=== PATIENT | female | born 1965 | race Hispanic/Latino ===

== ENCOUNTER → 2017-07-28 | Outpatient (CLI) | payer OTHER ==
[~2017-07-28] MED LIST: EXEN2VIA SQ; GLIM4TAB3 PO; LOSA100T29 PO; OMEP20CA10 PO; SITA1TAB6 PO
[2017-07-28 07:49] LABS: BASOPHILS % (AUTO) 0.6 % (0.0-5.0); LYMPHOCYTES % (AUTO) 28.2 % (21.0-51.0); MEAN CORPUSCULAR HEMOGLOBIN 28.2 pg (27.0-33.0); MEAN CORPUSCULAR HGB CONC 33.4 g/dL (32.0-36.0); MEAN CORPUSCULAR VOLUME 84.5 fL (79-99); MONOCYTES % (AUTO) 4.8 % (3.0-13.0); NEUTROPHILS % (AUTO) 64.4 % (40.0-77.0); NUCLEATED RED BLOOD CELLS 0.1 % (0.0-0.19); PLATELET COUNT (AUTO) 85 K/uL (130-400); RED BLOOD CELL COUNT(AUTO) 4.97 MIL/uL (4.00-5.50); RED CELL DISTRIBUTION WIDTH 14.3 % (11.0-15.5); WHITE BLOOD COUNT (AUTO) 6.3 K/uL (4.8-10.8)
[2017-07-28 08:01] LABS: HEMOGLOBIN A1C 8.5 % (4.0-6.0)
[2017-07-28 08:04] LABS: ALBUMIN 3.6 g/dL (3.5-5.0); BILIRUBIN,TOTAL 0.4 mg/dL (0.2-1.0); CREATININE 0.8 mg/dL (0.5-1.5); POTASSIUM 4.1 mmol/L (3.5-5.1); TOTAL PROTEIN, SERUM 7.4 g/dL (6.0-8.3)
== END | disposition home or self-care (01) ==
LOC: LAB 07:05
PROVIDERS: ATTEND Internal Medicine
DX: I10 Essential (primary) hypertension (principal); E11.9 Type 2 diabetes mellitus without complications; E78.4 Other hyperlipidemia
CPT/HCPCS: 36415; 80053; 80061; 82043; 83036; 85025

== ENCOUNTER → 2017-11-08 | Outpatient (CLI) | payer OTHER ==
[2017-11-08 09:49] LABS: BASOPHILS % (AUTO) 0.5 % (0.0-5.0); EOSINOPHILS % (AUTO) 1.7 % (0.0-8.0); HEMATOCRIT 43.1 % (36-48); LYMPHOCYTES % (AUTO) 21.6 % (21.0-51.0); MEAN CORPUSCULAR HEMOGLOBIN 28.8 pg (27.0-33.0); MEAN CORPUSCULAR HGB CONC 34.4 g/dL (32.0-36.0); MEAN CORPUSCULAR VOLUME 83.7 fL (79-99); NEUTROPHILS % (AUTO) 72.2 % (40.0-77.0); NUCLEATED RED BLOOD CELLS 0.1 % (0.0-0.19); PLATELET COUNT (AUTO) 106 K/uL (130-400); RED BLOOD CELL COUNT(AUTO) 5.15 MIL/uL (4.00-5.50); WHITE BLOOD COUNT (AUTO) 7.2 K/uL (4.8-10.8)
[2017-11-08 09:57] LABS: HEMOGLOBIN A1C 8.6 % (4.0-6.0)
[2017-11-08 10:06] LABS: ALBUMIN 3.8 g/dL (3.5-5.0); BILIRUBIN,TOTAL 0.4 mg/dL (0.2-1.0); CREATININE 0.9 mg/dL (0.5-1.5); POTASSIUM 4.3 mmol/L (3.5-5.1); TOTAL PROTEIN, SERUM 7.8 g/dL (6.0-8.3)
== END | disposition home or self-care (01) ==
LOC: LAB 09:17
PROVIDERS: ATTEND Internal Medicine
DX: E11.65 Type 2 diabetes mellitus with hyperglycemia (principal); I10 Essential (primary) hypertension; E78.4 Other hyperlipidemia; E55.9 Vitamin D deficiency, unspecified
CPT/HCPCS: 36415; 80053; 80061; 82306; 83036; 85025

== ENCOUNTER → 2018-03-19 | Outpatient (CLI) | payer OTHER ==
[~2018-03-19] MED LIST changes: +LOSA100T20 PO; -LOSA100T29 PO
[2018-03-19 14:16] LABS: THYROID STIMULATING HORMONE 2.59 uIU/mL (0.36-3.74)
== END | disposition home or self-care (01) ==
LOC: LAB 13:20
PROVIDERS: ATTEND Obstetrics & Gynecology
DX: R53.83 Other fatigue (principal); I10 Essential (primary) hypertension; E78.5 Hyperlipidemia, unspecified
CPT/HCPCS: 36415; 80061; 82670; 83001; 84402; 84403; 84439; 84443; 84481

== ENCOUNTER → 2018-04-30 | Outpatient (CLI) | payer OTHER | END | disposition home or self-care (01) | LOC: LAB 15:37 | PROVIDERS: ATTEND Obstetrics & Gynecology | DX: R53.83 Other fatigue (principal); Z72.89 Other problems related to lifestyle | CPT/HCPCS: 36415; 82670; 83001; 84402; 84403 ==

== ENCOUNTER → 2018-05-30 | Outpatient (CLI) | payer OTHER ==
[2018-05-30 11:24] LABS: BASOPHILS % (AUTO) 0.7 % (0.0-5.0); EOSINOPHILS % (AUTO) 1.5 % (0.0-8.0); HEMATOCRIT 44.7 % (36-48); LYMPHOCYTES % (AUTO) 19.7 % (21.0-51.0); MEAN CORPUSCULAR HEMOGLOBIN 27.7 pg (27.0-33.0); MEAN CORPUSCULAR HGB CONC 32.5 g/dL (32.0-36.0); MEAN CORPUSCULAR VOLUME 85.4 fL (79-99); MONOCYTES % (AUTO) 4.3 % (3.0-13.0); NEUTROPHILS % (AUTO) 73.8 % (40.0-77.0); NUCLEATED RED BLOOD CELLS 0.1 % (0.0-0.19); PLATELET COUNT (AUTO) 89 K/uL (130-400); RED BLOOD CELL COUNT(AUTO) 5.24 MIL/uL (4.00-5.50); RED CELL DISTRIBUTION WIDTH 13.6 % (11.0-15.5); WHITE BLOOD COUNT (AUTO) 7.9 K/uL (4.8-10.8)
[2018-05-30 11:24] LABS: CREATININE,URINE RANDOM 56 mg/dL (30-135)
[2018-05-30 11:26] LABS: APPEARANCE,URINE Clear (CLEAR); BILIRUBIN,URINE Negative (NEGATIVE); COLOR,URINE Yellow (YELLOW); GLUCOSE, URINE (UA) >=1000 mg/dL (NEGATIVE); KETONES,URINE Trace mg/dL (NEGATIVE); LEUKOCYTE ESTERASE ,URINE Trace (NEGATIVE); NITRATE,URINE Negative (NEGATIVE); OCCULT BLOOD,URINE Negative (NEGATIVE); PROTEIN,URINE Negative (NEGATIVE); UROBILINOGEN,URINE 0.2 mg/dL (0.2-1.0)
[2018-05-30 11:31] LABS: HEMOGLOBIN A1C 8.1 % (4.0-6.0)
[2018-05-30 11:33] LABS: BACTERIA,URINE Rare /HPF (None Seen); MUCUS,URINE Rare LPF (None Seen); RBC,URINE 0-1 /HPF (0-1); SQUAMOUS EPITHELIAL CELL,UR Rare /HPF (0-2); WBC,URINE 0-1 /HPF (0-1)
[2018-05-30 11:36] LABS: ALBUMIN 3.9 g/dL (3.5-5.0); BILIRUBIN,TOTAL 0.6 mg/dL (0.2-1.0); CREATININE 0.8 mg/dL (0.5-1.5); POTASSIUM 4.3 mmol/L (3.5-5.1); TOTAL PROTEIN, SERUM 7.9 g/dL (6.0-8.3)
== END | disposition home or self-care (01) ==
LOC: LAB 10:43
PROVIDERS: ATTEND Internal Medicine
DX: Z12.31 Encounter for screening mammogram for malignant neoplasm of breast (principal); E11.9 Type 2 diabetes mellitus without complications; I10 Essential (primary) hypertension; E78.5 Hyperlipidemia, unspecified
CPT/HCPCS: 36415; 77067; 80053; 80061; 81001; 82570; 83036; 85025

== ENCOUNTER → 2018-10-16 | Outpatient (CLI) | payer OTHER ==
[~2018-10-16] MED LIST changes: -LOSA100T20 PO; +LOSA100T58 PO
[2018-10-16 07:53] LABS: HEMOGLOBIN A1C 8.1 % (4.0-6.0)
[2018-10-16 08:10] LABS: THYROID STIMULATING HORMONE 3.11 uIU/mL (0.36-3.74)
== END | disposition home or self-care (01) ==
LOC: LAB 07:14
PROVIDERS: ATTEND Obstetrics & Gynecology
DX: R53.83 Other fatigue (principal)
CPT/HCPCS: 36415; 80061; 82670; 83001; 83036; 84402; 84403; 84439; 84443; 84481

== ENCOUNTER 2019-01-23 17:43 | Emergency (ER) | payer OTHER ==
[~2019-01-23 17:43] MED LIST changes: +OMEP-50 PO; -OMEP20CA10 PO
[2019-01-23] MEDS ORDERED: PHENAZOPYRIDINE HCL 200 MG TABLET ONE (18:14)
[2019-01-23] MEDS ORDERED: IBUPROFEN 600 MG TABLET ONE (18:14)
[2019-01-23 18:23] LABS: APPEARANCE,URINE Clear (CLEAR); BILIRUBIN,URINE Negative (NEGATIVE); COLOR,URINE Yellow (YELLOW); GLUCOSE, URINE (UA) >=1000 mg/dL (NEGATIVE); KETONES,URINE Negative (NEGATIVE); LEUKOCYTE ESTERASE ,URINE Small (NEGATIVE); NITRATE,URINE Negative (NEGATIVE); OCCULT BLOOD,URINE Large (NEGATIVE); PROTEIN,URINE Negative (NEGATIVE); UROBILINOGEN,URINE 0.2 mg/dL (0.2-1.0)
[2019-01-23 18:40] LABS: BACTERIA,URINE Few /HPF (None Seen)
[2019-01-23 18:41] LABS: SQUAMOUS EPITHELIAL CELL,UR 0-2 /HPF (0-2)
[2019-01-23] MEDS ORDERED: LIDOCAINE HCL-MPF 1% 2ML VIAL ONE (19:10)
[2019-01-23] MEDS ORDERED: CEFTRIAXONE SODIUM 1 GM ONE (19:10)
== END 2019-01-23 19:43 | disposition home or self-care (01) ==
LOC: EDH 17:43
DX: N39.0 Urinary tract infection, site not specified (principal); I10 Essential (primary) hypertension; K21.9 Gastro-esophageal reflux disease without esophagitis; E11.9 Type 2 diabetes mellitus without complications
CPT/HCPCS: 81001; 87077; 87088; 87186; 96372; 99284; J0696; J3490

== ENCOUNTER → 2019-02-19 | Outpatient (CLI) | payer OTHER ==
[2019-02-19 08:39] LABS: BASOPHILS % (AUTO) 0.6 % (0.0-5.0); EOSINOPHILS % (AUTO) 1.9 % (0.0-8.0); HEMATOCRIT 41.3 % (36-48); LYMPHOCYTES % (AUTO) 24.6 % (21.0-51.0); MEAN CORPUSCULAR HEMOGLOBIN 28.7 pg (27.0-33.0); MEAN CORPUSCULAR HGB CONC 34.1 g/dL (32.0-36.0); MEAN CORPUSCULAR VOLUME 84.2 fL (79-99); MONOCYTES % (AUTO) 4.8 % (3.0-13.0); NEUTROPHILS % (AUTO) 68.1 % (40.0-77.0); NUCLEATED RED BLOOD CELLS 0.1 % (0.0-0.19); PLATELET COUNT (AUTO) 90 K/uL (130-400); RED CELL DISTRIBUTION WIDTH 14.1 % (11.0-15.5); WHITE BLOOD COUNT (AUTO) 6.2 K/uL (4.8-10.8)
[2019-02-19 08:52] LABS: ALBUMIN 3.8 g/dL (3.5-5.0); BILIRUBIN,TOTAL 0.5 mg/dL (0.2-1.0); CREATININE 0.7 mg/dL (0.5-1.5); POTASSIUM 4.4 mmol/L (3.5-5.1); TOTAL PROTEIN, SERUM 7.7 g/dL (6.0-8.3)
[2019-02-19 08:59] LABS: HEMOGLOBIN A1C 9.4 % (4.0-6.0)
[2019-02-19 09:22] LABS: PLATELET MORPHOLOGY COMMENT DECREASED
== END | disposition home or self-care (01) ==
LOC: LAB 07:56
PROVIDERS: ATTEND Internal Medicine
DX: E11.9 Type 2 diabetes mellitus without complications (principal); I10 Essential (primary) hypertension; E78.49 Other hyperlipidemia
CPT/HCPCS: 36415; 80053; 82270; 82570; 83036; 85025

== ENCOUNTER → 2019-07-10 | Outpatient (CLI) | payer OTHER ==
[~2019-07-10] MED LIST changes: -GLIM4TAB3 PO; +GLIM4TAB36 PO; -OMEP-50 PO; +OMEP20CA12 PO
[2019-07-10 10:55] LABS: BASOPHILS % (AUTO) 0.5 % (0.0-5.0); EOSINOPHILS % (AUTO) 1.7 % (0.0-8.0); HEMATOCRIT 41.2 % (36-48); MEAN CORPUSCULAR VOLUME 84.9 fL (79-99); MONOCYTES % (AUTO) 4.2 % (3.0-13.0); NEUTROPHILS % (AUTO) 64.8 % (40.0-77.0); PLATELET COUNT (AUTO) 104 K/uL (130-400); RED BLOOD CELL COUNT(AUTO) 4.85 MIL/uL (4.00-5.50); RED CELL DISTRIBUTION WIDTH 12.9 % (11.0-15.5); WHITE BLOOD COUNT (AUTO) 6.6 K/uL (4.8-10.8)
[2019-07-10 11:01] LABS: HEMOGLOBIN A1C 9.5 % (4.0-6.0)
[2019-07-10 11:06] LABS: ALBUMIN 3.5 g/dL (3.5-5.0); BILIRUBIN,TOTAL 0.3 mg/dL (0.2-1.0); CREATININE 0.7 mg/dL (0.5-1.5); POTASSIUM 4.2 mmol/L (3.5-5.1); TOTAL PROTEIN, SERUM 7.5 g/dL (6.0-8.3)
== END | disposition home or self-care (01) ==
LOC: LAB 09:58
PROVIDERS: ATTEND Internal Medicine
DX: E78.49 Other hyperlipidemia (principal); E11.9 Type 2 diabetes mellitus without complications; I10 Essential (primary) hypertension
CPT/HCPCS: 36415; 80053; 82270; 82570; 83036; 85025

== ENCOUNTER → 2019-07-22 | Outpatient (CLI) | payer OTHER ==
[2019-07-23 08:12] LABS: HEPATITIS A ANTIBODY IGM Negative (Negative); HEPATITIS B CORE IGM Negative (Negative); HEPATITIS Bs ANTIGEN SCREEN P Negative (Negative)
== END | disposition home or self-care (01) ==
LOC: RAH 11:24
PROVIDERS: ATTEND Internal Medicine
DX: M54.5 Low back pain (principal); E11.9 Type 2 diabetes mellitus without complications; Z86.010 Personal history of colon polyps; I10 Essential (primary) hypertension; D64.9 Anemia, unspecified; K21.9 Gastro-esophageal reflux disease without esophagitis; Z79.899 Other long term (current) drug therapy
CPT/HCPCS: 36415; 72100; 72220; 80074; 82270

== ENCOUNTER → 2019-08-14 | Outpatient (CLI) | payer OTHER | END | disposition home or self-care (01) | LOC: RAH 14:25 | PROVIDERS: ATTEND Internal Medicine | DX: Z12.31 Encounter for screening mammogram for malignant neoplasm of breast (principal) | CPT/HCPCS: 77067 ==

== ENCOUNTER → 2019-10-14 | Outpatient (CLI) | payer OTHER ==
[2019-10-14 10:41] LABS: HEMOGLOBIN A1C 8.3 % (4.0-6.0)
[2019-10-14 10:48] LABS: BILIRUBIN,TOTAL 0.4 mg/dL (0.2-1.0); CREATININE 0.8 mg/dL (0.5-1.5); POTASSIUM 4.3 mmol/L (3.5-5.1); TOTAL PROTEIN, SERUM 7.9 g/dL (6.0-8.3)
== END | disposition home or self-care (01) ==
LOC: LAB 09:39
PROVIDERS: ATTEND Internal Medicine
DX: E11.65 Type 2 diabetes mellitus with hyperglycemia (principal); E78.41 Elevated Lipoprotein(a); I10 Essential (primary) hypertension
CPT/HCPCS: 36415; 80053; 83036

== ENCOUNTER 2019-12-09 08:40 | Inpatient (IN) | payer OTHER ==
[~2019-12-09] VITALS: Ht 162.6 cm; Wt 97.3 kg
[2019-12-09] MEDS ORDERED: ONDANSETRON HCL 4 MG/2 ML VIAL ONE (10:18)
[2019-12-09] MEDS ORDERED: POTASSIUM CHLORIDE 20 MEQ ERTAB PO ONE (10:18)
[2019-12-09] MEDS ORDERED: ACETAMINOPHEN 325 MG TAB ONE (10:19)
[2019-12-09] MEDS ORDERED: DEXAMETHASONE SOD PHOSPHATE 10MG/ML 1ML VIAL ONE (11:06)
[2019-12-09] MEDS: LACTATED RINGERS 1000ML 1,000 ML IV SCH (13:42)
[2019-12-09] MEDS ORDERED: LACTULOSE 20 GM/30 ML UDCUP PO PRN (13:45)
[2019-12-09] MEDS: METHYLPREDNISOLONE SOD SUCC 125MG/2ML VIAL IV SCH ×2 (13:45→20:22)
[2019-12-09] MEDS ORDERED: ONDANSETRON HCL 4 MG/2 ML VIAL IV PRN (13:45)
[2019-12-09] MEDS ORDERED: POTASSIUM CHLORIDE 20MEQ/100ML 100 ML IV PRN ×2 (13:45)
[2019-12-09] MEDS ORDERED: NITROGLYCERIN 0.4 MG SL TAB SL PRN (13:45)
[2019-12-09] MEDS ORDERED: DiphenhydrAMINE HCL 50 MG/ML VIAL IV PRN (13:45)
[2019-12-09] MEDS: DOXYCYCLINE 100MG+NS 250ML 250 ML IV SCH (13:45)
[2019-12-09] MEDS ORDERED: ACETAMINOPHEN 325 MG TAB PO PRN (13:45)
[2019-12-09] MEDS ORDERED: GLUCAGON 1MG KIT 1 MG ML IM PRN (13:45)
[2019-12-09] MEDS ORDERED: DEXTROSE 50%-WATER 50 ML DISP.SYRIN IV PRN (13:45)
[2019-12-09] MEDS ORDERED: MAG HYDROX/AL HYDROX/SIMETH ES 30 ML SUSP UDCUP PO PRN (13:45)
[2019-12-09] MEDS ORDERED: GUAIFENESIN-DM 200/20 MG 10 ML PO PRN (13:45)
[2019-12-09] MEDS ORDERED: POTASSIUM CHLORIDE 10% ELIXIR 20 MEQ/15 ML UDCUP PO PRN (13:45)
[2019-12-09] MEDS ORDERED: DIPHENHYDRAMINE HCL 25 MG CAPSULE PO PRN (13:45)
[2019-12-09] MEDS: BENZONATATE 100 MG CAPSULE PO SCH ×2 (14:00→20:23)
[2019-12-09] MEDS ORDERED: DOXYCYCLINE 100MG+NS 250ML 250 ML IV ONE (15:07)
[2019-12-09] MEDS ORDERED: BENZONATATE 100 MG CAPSULE PO ONE ×2 (15:09→15:31)
[2019-12-09] MEDS ORDERED: METHYLPREDNISOLONE SOD SUCC 40MG/ML 1ML ONE (15:09)
[2019-12-09] MEDS ORDERED: LACTATED RINGERS 1000ML 1,000 ML IV ONE (15:09)
--- NOTE | 2019-12-09 15:48 | NUR ---
DCP: HOME WITH FAMILY Sw unable to speak to pt in [facility] unit. SW spoke to Arian [phone]. Prior to admit, pt was independent, works at [employer] [place], no [place] or in home care services. PCP is dr Dobson and she uses mail order or [facility] for rx. [place] Addendum: 12/09/19 at 1550 by ELIZABETH GASCA Amended: Links added.
[2019-12-09 16:00] VITALS: BP 137/64; PULSE 97; RESP 19; TEMP 99
[2019-12-09] MEDS: INSULIN HUMULIN R 100 UNIT/ML 3ML SQ SCH ×2 (16:30→21:04)
[2019-12-09 19:21] VITALS: BP 126/52; PULSE 58; RESP 19; TEMP 98.9
[2019-12-09] MEDS: CEFTRIAXONE SODIUM 1 GM IV SCH (20:22)
[2019-12-09] MEDS: FAMOTIDINE/PF 20 MG/2 ML VIAL IV SCH (20:23)
[2019-12-09] MEDS ORDERED: FAMOTIDINE/PF 20 MG/2 ML VIAL IV SCH (21:00)
[2019-12-09] MEDS: INSULIN GLARGINE 100 UNITS/ML 10 ML VIAL SQ SCH (21:06)
[2019-12-09 23:07] VITALS: BP 142/72; PULSE 61; RESP 18; TEMP 99.1
[2019-12-10] MEDS: DOXYCYCLINE 100MG+NS 250ML 250 ML IV SCH ×2 (02:46→14:46)
[2019-12-10 03:48] VITALS: BP 135/71; PULSE 48; RESP 20; TEMP 98.3
--- NOTE | 2019-12-10 05:15 | NUR ---
PATIENT RESTING IN BED. DENIES PAIN. DOES C/O SOB AND NON PRODUCTIVE COUGH WITH EXERTION. DIMINISHED BREATH SOUNDS TO BASES. C/O NAUSEA. ANTIEMETICS ADMINISTERED X1. MONITORING BLOOD SUGARS CLOSELY. WILL CONTINUE TO MONITOR.
[2019-12-10] MEDS: METHYLPREDNISOLONE SOD SUCC 125MG/2ML VIAL IV SCH ×3 (06:14→20:31)
[2019-12-10] MEDS: INSULIN HUMULIN R 100 UNIT/ML 3ML SQ SCH ×3 (06:18→22:32)
[2019-12-10 08:52] VITALS: BP 141/74; PULSE 65; RESP 18; TEMP 98.5
--- NOTE | 2019-12-10 09:00 | NUR ---
NOTE AAOX3. DENIES PAIN BUT REPORTS DISCOMFORT FROM NOT SLEEPING ALL NIGHT. STATES SHE WAS VERY NERVOUS ABOUT TESTING POSITIVE FOR COVID AND WONDERED WHERE SHE DID WRONG HOW SHE GOT INFECTED. DOES NOT APPEAR TO BE SOB WITH O2@2LNC BUT SHE GETS SOB WITH MINIMAL EXERTION. BBS VERY DIMINISHED THROUGHOUT. WHEN ASKED TO TAKE DEEP BREATH TO AUSCULTATE SHE IMMEDIATELY STARTS COUGHING BUT NO PHLEGM BEING PRODUCED. SHE IS ON STEROIDS AND ANTIVIRAL HAS BEEN ORDERED BUT IS NOT AVAILABLE YET. SPOKE TO HER FOR A WHILE AND INSTRUCTED HER TO TRY TO BE OUT OF BED OFTEN TO PREVENT HER BREATHING TO GET WORST. HAS BEEN AFEBRILE FOR US. INITIALLY HER SYMPTOMS WERE DIARRHEA AND NAUSEA WHICH WAS STILL PRESENT LAST NIGHT.
[2019-12-10] MEDS: ENOXAPARIN SODIUM 40 MG/0.4 ML SYRINGE SQ SCH (09:11)
[2019-12-10] MEDS: CEFTRIAXONE SODIUM 1 GM IV SCH ×2 (09:11→20:29)
[2019-12-10] MEDS: BENZONATATE 100 MG CAPSULE PO SCH ×3 (09:11→20:29)
[2019-12-10] MEDS: FAMOTIDINE/PF 20 MG/2 ML VIAL IV SCH ×2 (09:11→20:28)
[2019-12-10] MEDS: LACTATED RINGERS 1000ML 1,000 ML IV SCH (09:42)
[2019-12-10 12:35] VITALS: BP 138/69; PULSE 56; RESP 18; TEMP 98.8
[2019-12-10 15:28] VITALS: BP 127/75; PULSE 63; RESP 18; TEMP 98.3
--- NOTE | 2019-12-10 16:30 | NUR ---
NOTE CONTINUES TO BE STABLE. NO WORSENING SOB NOTED. STILL ON O2 AT 2LNC AND WITH NO COUGH NOTED UNLESS SHE EXERTS HERSELF. SEEMS MORE CALM FAR NERVOUSNESS AND EMOTIONS. SHE SAID SHE COULD NOT SLEEP BECAUSE SHE WAS HAVING A HARD TIME ACCEPTING SHE GOT THIS SICK AND KEEPS TRYING TO FIGURE OUT WHERE SHE GOT THIS AT. I CALLED LAB AND SPOKE TO CHRISTIAN REGARDING THE AVAILABILITY OF THE CONVALESCENT PLASMA BUT THERE IS NONE AVAILABLE YET. LAB IS AWARE AND THEY WILL CALL US SOON THEY RECEIVE SOME FOR THIS PATIENT.
[2019-12-10 19:15] VITALS: BP 135/63; PULSE 56; RESP 18; TEMP 98.4
[2019-12-10] MEDS ORDERED: INSULIN GLARGINE 100 UNITS/ML 10 ML VIAL SQ SCH (21:00)
--- NOTE | 2019-12-10 21:00 | NUR ---
PT IS AMBULATING WITH 02 EXTENSION TUBING. MINIMAL SOB WITH EXERTION. INCONTINENT SO USING BRIEFS. PT HAS COUGH. TESSALON PEARLS GIVEN. STATES CONCERNS OVER BEING POSITIVE. PT GIVEN EMOTIONAL SUPPORT. TO MINIMIZE COVID FEARS. PENDING PLASMA.
[2019-12-10] MEDS: INSULIN GLARGINE 100 UNITS/ML 10 ML VIAL SQ SCH (22:32)
[2019-12-10 23:13] VITALS: BP 120/66; PULSE 54; RESP 18; TEMP 97.9
[2019-12-11] MEDS: DOXYCYCLINE 100MG+NS 250ML 250 ML IV SCH ×2 (01:26→13:09)
[2019-12-11] MEDS: LACTATED RINGERS 1000ML 1,000 ML IV SCH (01:26)
--- NOTE | 2019-12-11 01:40 | NUR ---
PT C/O CHILLS. TEMP CHECKED 98.1. DOXYCYCLINE RUNNING AT THIS TIME.
--- NOTE | 2019-12-11 04:00 | NUR ---
SINUS BRADYCARDIA, PT BASELINE IS 50 WHEN SLEEPING CAN GO DOWN TO 30'S HR. ASYMPTOMATIC.
[2019-12-11] MEDS: METHYLPREDNISOLONE SOD SUCC 125MG/2ML VIAL IV SCH (05:02)
[2019-12-11 05:16] VITALS: BP 130/62; PULSE 49; RESP 18; TEMP 96.9
[2019-12-11] MEDS: INSULIN HUMULIN R 100 UNIT/ML 3ML SQ SCH ×4 (05:31→21:01)
[2019-12-11] MEDS ORDERED: REMDESIVIR (INVESTIGATIONAL) 200 MG in SODIUM CHLORIDE 0.9% 250 ML IV SCH (07:30)
[2019-12-11 08:33] VITALS: BP 138/62; PULSE 54; RESP 18; TEMP 98.2
[2019-12-11] MEDS: FAMOTIDINE/PF 20 MG/2 ML VIAL IV SCH (09:05)
[2019-12-11] MEDS: CEFTRIAXONE SODIUM 1 GM IV SCH ×2 (09:05→20:56)
[2019-12-11] MEDS: ENOXAPARIN SODIUM 40 MG/0.4 ML SYRINGE SQ SCH (09:06)
[2019-12-11] MEDS: BENZONATATE 100 MG CAPSULE PO SCH ×3 (09:06→20:56)
[2019-12-11 12:26] VITALS: BP 138/73; PULSE 57; RESP 18; TEMP 98.5
[2019-12-11 16:40] VITALS: BP 138/78; PULSE 53; RESP 18; TEMP 99.1
[2019-12-11 20:00] VITALS: BP 136/47; PULSE 49; RESP 20; TEMP 98.5
[2019-12-11] MEDS: INSULIN GLARGINE 100 UNITS/ML 10 ML VIAL SQ SCH (21:01)
[2019-12-11] MEDS: ACETAMINOPHEN 325 MG TAB PO PRN (23:10)
[2019-12-12] VITALS (7 sets, daily range): BP systolic 99–146; BP diastolic 46–88; PULSE 47–75; RESP 18–20; TEMP 98.2–100.3
[2019-12-12] MEDS: DOXYCYCLINE 100MG+NS 250ML 250 ML IV SCH ×2 (02:23→12:43)
[2019-12-12] MEDS: INSULIN HUMULIN R 100 UNIT/ML 3ML SQ SCH ×4 (05:45→20:58)
[2019-12-12] MEDS: PANTOPRAZOLE SODIUM 40 MG TABLET.DR PO SCH (06:33)
--- NOTE | 2019-12-12 08:00 | NUR ---
ENCOUNTERED PATIENT LAYING ON BED ON 2L OF OXYGEN PER NC. SHE VERBALIZED THAT SHE FEELS A BIT BETTER TODAY. PT STILL COUGHS DESPITE BEING ON BENZONATATE TID. THIS CAUSES INTERMITTENT CHEST PAIN. FULL ASSESSMENT DONE. ENHANCED PRECAUTIONS MAINTAINED. CALL LIGHT WITHIN REACH.
[2019-12-12] MEDS: SIMVASTATIN 10 MG TABLET PO SCH (08:32)
[2019-12-12] MEDS: ASPIRIN 81 MG EC TAB PO SCH (08:33)
[2019-12-12] MEDS: POTASSIUM CHLORIDE 20 MEQ ERTAB PO PRN ×3 (08:33→14:25)
[2019-12-12] MEDS: DEXAMETHASONE 4 MG TAB PO SCH (08:33)
[2019-12-12] MEDS: ENOXAPARIN SODIUM 40 MG/0.4 ML SYRINGE SQ SCH (08:34)
[2019-12-12] MEDS: CEFTRIAXONE SODIUM 1 GM IV SCH (08:37)
[2019-12-12] MEDS: BENZONATATE 100 MG CAPSULE PO SCH ×3 (08:37→20:53)
[2019-12-12] MEDS: **HM** FARXIGA 10MG PO SCH (08:51)
--- NOTE | 2019-12-12 12:00 | NUR ---
INFORMED [facility] THAT PT'S LATEST TEMP IS 100.3F. PER DR. CALI, WILL HOLD OFF ON CONVALESCENT PLASMA ADMINISTRATION FOR NOW.
[2019-12-12] MEDS: ACETAMINOPHEN 325 MG TAB PO PRN (12:16)
[2019-12-12] MEDS: ZOSYN 3.375GM+NS 50ML 50 ML IV SCH (20:53)
[2019-12-12] MEDS: INSULIN GLARGINE 100 UNITS/ML 10 ML VIAL SQ SCH (20:59)
[2019-12-13] VITALS (7 sets, daily range): BP systolic 125–168; BP diastolic 56–83; PULSE 45–69; RESP 18–20; TEMP 97.6–99.3
[2019-12-13] MEDS: DOXYCYCLINE 100MG+NS 250ML 250 ML IV SCH ×2 (01:45→14:45)
[2019-12-13] MEDS: ZOSYN 3.375GM+NS 50ML 50 ML IV SCH ×3 (04:01→20:24)
[2019-12-13] MEDS: INSULIN HUMULIN R 100 UNIT/ML 3ML SQ SCH ×4 (05:52→20:27)
[2019-12-13] MEDS: **HM** FARXIGA 10MG PO SCH (07:40)
[2019-12-13] MEDS: PANTOPRAZOLE SODIUM 40 MG TABLET.DR PO SCH (07:52)
[2019-12-13] MEDS: DEXAMETHASONE 4 MG TAB PO SCH (07:52)
[2019-12-13] MEDS: ASPIRIN 81 MG EC TAB PO SCH (07:52)
[2019-12-13] MEDS: SIMVASTATIN 10 MG TABLET PO SCH (07:52)
[2019-12-13] MEDS: BENZONATATE 100 MG CAPSULE PO SCH ×3 (07:52→20:24)
[2019-12-13] MEDS: ENOXAPARIN SODIUM 40 MG/0.4 ML SYRINGE SQ SCH (07:53)
--- NOTE | 2019-12-13 16:00 | NUR ---
DR. CALI IS ROUNDING. INFORMED MD OF LAB RESULTS. PATIENT REMAINS ON ROOM AIR HOWEVER DDIMER AND CRP INCREASED TODAY. MD ORDERED TO ADMINISTER CONVALESCENT PLASMA.
--- NOTE | 2019-12-13 18:00 | NUR ---
PATIENT SIGNED CONSENT FOR CONVALESCENT PLASMA. BLOOD TRANSFUSION AND [facility] CONSENTS SIGNED AND FILED IN CHART.
[2019-12-13] MEDS: INSULIN GLARGINE 100 UNITS/ML 10 ML VIAL SQ SCH (20:25)
[2019-12-14] VITALS (7 sets, daily range): BP systolic 107–171; BP diastolic 62–74; PULSE 39–57; RESP 18–20; TEMP 97.8–98.9
[2019-12-14] MEDS: DOXYCYCLINE 100MG+NS 250ML 250 ML IV SCH ×2 (00:29→13:18)
--- NOTE | 2019-12-14 00:45 | NUR ---
SINUS MIHAI BRIM AND CROWN PRESSER REPORTED PATIENT TO BE SINUS MIHAI 32. WHEN ENTERING PATIENTS ROOM, PATIENT RESTING IN BED WITH OU CLOSED. EASILY AROUSED. VOICES ALL NEEDS. RESP EVEN AND UNLABORED. NO SOB NOTED. ON ROOM AIR. VITALS STABLE. AFEBRILE. TOLERATING IV ABT WELL. NO ADVERSE REACTIONS NOTED. NO SIGNS OF DISTRESS NOTED. CALL LIGHT WITHIN REACH. WILL CONTINUE TO BE OBSERVED. Addendum: 12/14/19 at 0704 by KRISTIN CARLOS RN RN Amended: Links added.
[2019-12-14] MEDS: ZOSYN 3.375GM+NS 50ML 50 ML IV SCH ×3 (04:00→20:26)
[2019-12-14] MEDS: PANTOPRAZOLE SODIUM 40 MG TABLET.DR PO SCH (06:05)
[2019-12-14] MEDS: INSULIN HUMULIN R 100 UNIT/ML 3ML SQ SCH ×4 (06:23→20:26)
[2019-12-14] MEDS: POTASSIUM CHLORIDE 20 MEQ ERTAB PO PRN ×3 (06:27→09:54)
[2019-12-14] MEDS: **HM** FARXIGA 10MG PO SCH (06:37)
[2019-12-14] MEDS: DEXAMETHASONE 4 MG TAB PO SCH (07:51)
[2019-12-14] MEDS: SIMVASTATIN 10 MG TABLET PO SCH (07:51)
[2019-12-14] MEDS: BENZONATATE 100 MG CAPSULE PO SCH ×3 (07:51→20:27)
[2019-12-14] MEDS: ASPIRIN 81 MG EC TAB PO SCH (07:51)
[2019-12-14] MEDS: ENOXAPARIN SODIUM 40 MG/0.4 ML SYRINGE SQ SCH (07:52)
--- NOTE | 2019-12-14 13:40 | NUR ---
JHONNY JUAREZ IS MAKING HER ROUNDS. UPDATED ON PATIENT'S STATUS.
--- NOTE | 2019-12-14 14:50 | NUR ---
INITIATED CONVALESCENT PLASMA TRANSFUSION ORDERED.
--- NOTE | 2019-12-14 17:00 | NUR ---
COMPLETED TRANSFUSION OF CONVALESCENT PLASMA WITHOUT COMPLICATIONS OR TRANSFUSION REACTION.
[2019-12-14] MEDS: INSULIN GLARGINE 100 UNITS/ML 10 ML VIAL SQ SCH (20:27)
[2019-12-15] MEDS: DOXYCYCLINE 100MG+NS 250ML 250 ML IV SCH (00:01)
[2019-12-15 03:06] VITALS: BP 118/76; PULSE 50; RESP 18; TEMP 97.7
[2019-12-15] MEDS: ZOSYN 3.375GM+NS 50ML 50 ML IV SCH ×2 (04:24→11:13)
[2019-12-15] MEDS: PANTOPRAZOLE SODIUM 40 MG TABLET.DR PO SCH (06:57)
[2019-12-15] MEDS: **HM** FARXIGA 10MG PO SCH (06:57)
[2019-12-15] MEDS: INSULIN HUMULIN R 100 UNIT/ML 3ML SQ SCH ×2 (06:58→12:12)
[2019-12-15] MEDS: DEXAMETHASONE 4 MG TAB PO SCH (07:45)
[2019-12-15] MEDS: BENZONATATE 100 MG CAPSULE PO SCH (07:45)
[2019-12-15] MEDS: ASPIRIN 81 MG EC TAB PO SCH (07:45)
[2019-12-15] MEDS: POTASSIUM CHLORIDE 20 MEQ ERTAB PO PRN ×2 (07:46→10:37)
[2019-12-15] MEDS: ENOXAPARIN SODIUM 40 MG/0.4 ML SYRINGE SQ SCH (07:46)
[2019-12-15] MEDS: SIMVASTATIN 10 MG TABLET PO SCH (07:48)
[2019-12-15 08:00] VITALS: BP 146/81; PULSE 44; RESP 18; TEMP 98.2
[2019-12-15 12:00] VITALS: BP 140/84; PULSE 58; RESP 18; TEMP 98.7
--- NOTE | 2019-12-15 15:13 | NUR ---
DISCHARGE INSTRUCTIONS/INFORMATION GIVEN TO PATIENT. TEACH BACK METHOD UTILIZED TO EDUCATE PATIENT ON NEW MED PRESCRIBED, HAND WASHING, ACTIVITY, S/S TO MONITOR, WHEN TO CALL MD, AND F/U APPOINTMENTS. INSTRUCTED PATIENT TO CONTINUE TO SELF ISOLATE FOR ANOTHER 14 DAYS AND TO FOLLOW CDC GUIDELINES ON PREVENTING SPREAD OF COVID-19. PATIENT VERBALIZED UNDERSTANDING. PIV REMOVED. TIP WAS INTACT. TELE PACK REMOVED AND RETURNED. ALL BELONGINGS WERE PACKED.
== END 2019-12-15 15:30 | disposition home or self-care (01) | DRG 177 ==
LOC: EDH 08:40 → EDHIP 13:42 → 2AH 16:42
PROVIDERS: ADMIT Family Medicine; ATTEND Family Medicine
PROC: 30233K1 Transfusion of Nonautologous Frozen Plasma into Peripheral Vein, Percutaneous Approach (ICD-10-PCS; principal; 2019-12-15)
DX: U07.1 COVID-19 (principal); J12.89 Other viral pneumonia; J96.01 Acute respiratory failure with hypoxia; A41.9 Sepsis, unspecified organism; E11.9 Type 2 diabetes mellitus without complications; I10 Essential (primary) hypertension; D69.6 Thrombocytopenia, unspecified; E66.9 Obesity, unspecified; Y95 Nosocomial condition; K21.9 Gastro-esophageal reflux disease without esophagitis; Z68.36 Body mass index [BMI] 36.0-36.9, adult; Z90.49 Acquired absence of other specified parts of digestive tract; Z83.3 Family history of diabetes mellitus; Z82.49 Family history of ischemic heart disease and other diseases of the circulatory system

== ENCOUNTER → 2019-12-25 | Outpatient (CLI) | payer OTHER ==
[~2019-12-25] MED LIST changes: +ASPI-1443 PO; +DAPA10TA PO; +DEXA6TAB7 PO; +DULA1.5P SQ; -EXEN2VIA SQ; -GLIM4TAB36 PO; +INSU300I SQ; +METF-446 PO; +OMEP-420 PO; -OMEP20CA12 PO; +SIMV10TA97 PO; -SITA1TAB6 PO
== END | disposition home or self-care (01) ==
LOC: RAH 11:05
PROVIDERS: ATTEND Internal Medicine
DX: U07.1 COVID-19 (principal)
CPT/HCPCS: 71046

== ENCOUNTER → 2020-01-10 | Outpatient (CLI) | payer OTHER ==
[2020-01-10 09:18] LABS: BASOPHILS % (AUTO) 0.4 % (0.0-5.0); EOSINOPHILS % (AUTO) 0.4 % (0.0-8.0); HEMATOCRIT 44.3 % (36-48); LYMPHOCYTES % (AUTO) 31.5 % (21.0-51.0); MEAN CORPUSCULAR HEMOGLOBIN 28.2 pg (27.0-33.0); MEAN CORPUSCULAR HGB CONC 33.2 g/dL (32.0-36.0); MONOCYTES % (AUTO) 4.5 % (3.0-13.0); PLATELET COUNT (AUTO) 106 K/uL (130-400); RED BLOOD CELL COUNT(AUTO) 5.21 MIL/uL (4.00-5.50); RED CELL DISTRIBUTION WIDTH 14.2 % (11.0-15.5); WHITE BLOOD COUNT (AUTO) 11.1 K/uL (4.8-10.8)
[2020-01-10 09:35] LABS: ALBUMIN 3.7 g/dL (3.5-5.0); BILIRUBIN,TOTAL 0.7 mg/dL (0.2-1.0); CREATININE 0.8 mg/dL (0.5-1.5); POTASSIUM 4.1 mmol/L (3.5-5.1); TOTAL PROTEIN, SERUM 7.2 g/dL (6.0-8.3)
[2020-01-10 09:50] LABS: HEMOGLOBIN A1C 9.6 % (4.0-6.0)
== END | disposition home or self-care (01) ==
LOC: RAH 08:41
PROVIDERS: ATTEND Internal Medicine
DX: B97.29 Other coronavirus as the cause of diseases classified elsewhere (principal); E78.49 Other hyperlipidemia; E11.65 Type 2 diabetes mellitus with hyperglycemia
CPT/HCPCS: 36415; 71250; 80053; 80061; 83036; 85025

== ENCOUNTER → 2020-05-05 | Outpatient (CLI) | payer OTHER | END | disposition home or self-care (01) | LOC: RAH 12:49 | PROVIDERS: ATTEND Internal Medicine | DX: R91.8 Other nonspecific abnormal finding of lung field (principal); B97.29 Other coronavirus as the cause of diseases classified elsewhere | CPT/HCPCS: 71250 ==

== ENCOUNTER → 2020-05-18 | Outpatient (CLI) | payer OTHER | END | disposition home or self-care (01) | LOC: RAH 07:34 | PROVIDERS: ATTEND Internal Medicine | DX: M51.36 Other intervertebral disc degeneration, lumbar region (principal); M47.816 Spondylosis without myelopathy or radiculopathy, lumbar region; M54.5 Low back pain | CPT/HCPCS: 72148 ==

== ENCOUNTER → 2020-05-25 | Outpatient (CLI) | payer OTHER ==
[2020-05-25 10:34] LABS: BASOPHILS % (AUTO) 0.4 % (0.0-5.0); EOSINOPHILS % (AUTO) 1.6 % (0.0-8.0); LYMPHOCYTES % (AUTO) 24.4 % (21.0-51.0); MEAN CORPUSCULAR HEMOGLOBIN 27.3 pg (27.0-33.0); MEAN CORPUSCULAR HGB CONC 32.3 g/dL (32.0-36.0); MEAN CORPUSCULAR VOLUME 84.5 fL (79-99); MONOCYTES % (AUTO) 4.5 % (3.0-13.0); NEUTROPHILS % (AUTO) 68.6 % (40.0-77.0); PLATELET COUNT (AUTO) 105 K/uL (130-400); RED BLOOD CELL COUNT(AUTO) 5.21 MIL/uL (4.00-5.50); RED CELL DISTRIBUTION WIDTH 12.8 % (11.0-15.5); WHITE BLOOD COUNT (AUTO) 7.3 K/uL (4.8-10.8)
[2020-05-25 10:54] LABS: ALBUMIN 3.8 g/dL (3.5-5.0); BILIRUBIN,TOTAL 0.4 mg/dL (0.2-1.0); CREATININE 0.7 mg/dL (0.5-1.5); POTASSIUM 4.5 mmol/L (3.5-5.1); TOTAL PROTEIN, SERUM 7.4 g/dL (6.0-8.3)
[2020-05-25 11:01] LABS: HEMOGLOBIN A1C 7.9 % (4.0-6.0)
== END | disposition home or self-care (01) ==
LOC: LAB 09:13
PROVIDERS: ATTEND Internal Medicine
DX: E11.65 Type 2 diabetes mellitus with hyperglycemia (principal); E78.49 Other hyperlipidemia; I10 Essential (primary) hypertension
CPT/HCPCS: 36415; 80053; 83036; 85025

== ENCOUNTER → 2020-11-18 | Outpatient (CLI) | payer OTHER ==
[2020-11-18 08:26] LABS: BASOPHILS % (AUTO) 0.6 % (0.0-5.0); EOSINOPHILS % (AUTO) 1.8 % (0.0-8.0); HEMATOCRIT 43.6 % (36-48); LYMPHOCYTES % (AUTO) 23.1 % (21.0-51.0); MEAN CORPUSCULAR HEMOGLOBIN 27.1 pg (27.0-33.0); MEAN CORPUSCULAR HGB CONC 31.9 g/dL (32.0-36.0); MONOCYTES % (AUTO) 4.2 % (3.0-13.0); NEUTROPHILS % (AUTO) 69.7 % (40.0-77.0); PLATELET COUNT (AUTO) 116 K/uL (130-400); RED BLOOD CELL COUNT(AUTO) 5.13 MIL/uL (4.00-5.50); RED CELL DISTRIBUTION WIDTH 13.2 % (11.0-15.5); WHITE BLOOD COUNT (AUTO) 7.8 K/uL (4.8-10.8)
[2020-11-18 08:36] LABS: HEMOGLOBIN A1C 9.3 % (4.0-6.0)
[2020-11-18 08:38] LABS: ALBUMIN 3.8 g/dL (3.5-5.0); BILIRUBIN,TOTAL 0.4 mg/dL (0.2-1.0); CREATININE 0.8 mg/dL (0.5-1.5); POTASSIUM 4.6 mmol/L (3.5-5.1); TOTAL PROTEIN, SERUM 7.5 g/dL (6.0-8.3)
== END | disposition home or self-care (01) ==
LOC: LAB 07:48
PROVIDERS: ATTEND Internal Medicine
DX: Z12.31 Encounter for screening mammogram for malignant neoplasm of breast (principal); E78.49 Other hyperlipidemia; I10 Essential (primary) hypertension; E11.65 Type 2 diabetes mellitus with hyperglycemia
CPT/HCPCS: 36415; 77067; 80053; 83036; 85025

== ENCOUNTER → 2020-12-16 | Outpatient (CLI) | payer OTHER ==
[2020-12-16 10:41] LABS: CHOLESTEROL 148 mg/dL (<200); HDL CHOLESTEROL 46 mg/dL (35-85); LDL DIRECT 81 mg/dL (0-99); TRIGLYCERIDES 159 mg/dL (30-200)
== END | disposition home or self-care (01) ==
LOC: LAB 09:43
PROVIDERS: ATTEND Internal Medicine
DX: E11.65 Type 2 diabetes mellitus with hyperglycemia (principal)
CPT/HCPCS: 36415; 80061; 82043

== ENCOUNTER 2021-07-03 07:23 | Emergency (ER) | payer OTHER ==
[~2021-07-03] VITALS: Ht 162.6 cm; Wt 97.5 kg
[2021-07-03] MEDS ORDERED: PREDNISOLONE 15 MG/5 ML SOLN ONE (07:39)
[2021-07-03] MEDS ORDERED: GUAIFENESIN 600 MG TABLET.ER PO ONE (07:58)
[2021-07-03] MEDS ORDERED: GUAIFENESIN SUGAR-FREE 100 MG/5 ML UDCUP ONE (07:59)
[2021-07-03] MEDS ORDERED: DEXAMETHASONE SOD PHOSPHATE 4 MG/ML 1ML VIAL IM SCH (08:00)
[2021-07-03] MEDS ORDERED: PREDNISOLONE 15 MG/5 ML SOLN PO SCH (08:00)
[2021-07-03] MEDS ORDERED: BENZ-39 PO (08:01)
[2021-07-03] MEDS ORDERED: DEXA6TAB PO (08:01)
[2021-07-03 08:04] VITALS: BP 140/72
== END 2021-07-03 08:14 | disposition home or self-care (01) ==
LOC: EDH 07:23
DX: J01.90 Acute sinusitis, unspecified (principal); B34.9 Viral infection, unspecified; I10 Essential (primary) hypertension; E11.9 Type 2 diabetes mellitus without complications; E78.00 Pure hypercholesterolemia, unspecified; Z90.49 Acquired absence of other specified parts of digestive tract; Z98.890 Other specified postprocedural states; Z79.899 Other long term (current) drug therapy
CPT/HCPCS: 96372

== ENCOUNTER 2021-07-20 06:04 | Day surgery (SDC) | payer OTHER ==
[~2021-07-20] VITALS: Ht 162.6 cm; Wt 95.3 kg
[2021-07-20] VITALS (9 sets, daily range): BP systolic 95–132; BP diastolic 14–67
[~2021-07-20 06:04] MED LIST changes: -DEXA6TAB7 PO; +VITAMIN D3 PO
[2021-07-20] MEDS ORDERED: 0.9%NACL 1000ML 1,000 ML IV ONE (06:49)
[2021-07-20] MEDS ORDERED: PROPOFOL 10 MG/ML 20ML VIAL IV ONE (07:25)
== END 2021-07-20 08:30 | disposition home or self-care (01) ==
LOC: DAH 06:04 → ENDO 06:04
PROVIDERS: ATTEND Internal Medicine Gastroenterology
DX: Z12.11 Encounter for screening for malignant neoplasm of colon (principal); Z20.822 Contact with and (suspected) exposure to COVID-19; D12.3 Benign neoplasm of transverse colon; K57.30 Diverticulosis of large intestine without perforation or abscess without bleeding; I10 Essential (primary) hypertension; E11.9 Type 2 diabetes mellitus without complications; K21.9 Gastro-esophageal reflux disease without esophagitis; Z72.89 Other problems related to lifestyle; Z86.11 Personal history of tuberculosis; Z79.899 Other long term (current) drug therapy; Z98.890 Other specified postprocedural states; Z86.010 Personal history of colon polyps; Z79.4 Long term (current) use of insulin
CPT/HCPCS: 45380; 82948; 87635; A4215 ×2; A4221; A4222; A4223; A4606; A4620; A4663; C9803; J2704; J7030; 45378

== ENCOUNTER → 2021-12-13 | Outpatient (CLI) | payer OTHER ==
[~2021-12-13] MED LIST changes: -INSU300I SQ
[2021-12-13 11:11] LABS: BASOPHILS % (AUTO) 0.5 % (0.0-5.0); EOSINOPHILS % (AUTO) 1.1 % (0.0-8.0); HEMATOCRIT 45.8 % (36-48); LYMPHOCYTES % (AUTO) 22.4 % (21.0-51.0); MEAN CORPUSCULAR HEMOGLOBIN 27.6 pg (27.0-33.0); MEAN CORPUSCULAR VOLUME 83.6 fL (79-99); MONOCYTES % (AUTO) 3.9 % (3.0-13.0); NEUTROPHILS % (AUTO) 71.7 % (40.0-77.0); PLATELET COUNT (AUTO) 106 K/uL (130-400); RED BLOOD CELL COUNT(AUTO) 5.48 MIL/uL (4.00-5.50); RED CELL DISTRIBUTION WIDTH 13.1 % (11.0-15.5); WHITE BLOOD COUNT (AUTO) 7.9 K/uL (4.8-10.8)
[2021-12-13 11:25] LABS: ALBUMIN 4.2 g/dL (3.5-5.0); BILIRUBIN,TOTAL 0.4 mg/dL (0.2-1.0); CREATININE 0.7 mg/dL (0.5-1.5); POTASSIUM 4.4 mmol/L (3.5-5.1); TOTAL PROTEIN, SERUM 7.9 g/dL (6.0-8.3)
== END | disposition home or self-care (01) ==
LOC: LAB 09:20
PROVIDERS: ATTEND Internal Medicine
DX: Z00.00 Encounter for general adult medical examination without abnormal findings (principal); E78.49 Other hyperlipidemia; I10 Essential (primary) hypertension
CPT/HCPCS: 36415; 80053; 80061; 82043; 85025

== ENCOUNTER → 2022-06-28 | Outpatient (CLI) | payer OTHER ==
[~2022-06-28] MED LIST changes: +GADOTERATE MEGLUMINE 10 MMOL/20 ML VIAL IV ONE
== END | disposition home or self-care (01) ==
LOC: RAH 10:16
PROVIDERS: ATTEND Otolaryngology
DX: H90.3 Sensorineural hearing loss, bilateral (principal)
CPT/HCPCS: 70553; A9575

== ENCOUNTER → 2023-02-07 | Outpatient (CLI) | payer OTHER ==
[~2023-02-07] MED LIST changes: -GADOTERATE MEGLUMINE 10 MMOL/20 ML VIAL IV ONE; -LOSA100T58 PO; +LOSA100T59 PO
== END | disposition home or self-care (01) ==
LOC: RAH 11:21
PROVIDERS: ATTEND Internal Medicine
DX: Z12.31 Encounter for screening mammogram for malignant neoplasm of breast (principal)
CPT/HCPCS: 77067

== ENCOUNTER 2023-02-11 07:46 | Emergency (ER) | payer OTHER ==
[~2023-02-11] VITALS: Ht 162.6 cm; Wt 90.7 kg
[2023-02-11 08:45] LABS: APPEARANCE,URINE CLOUDY (CLEAR); BILIRUBIN,URINE NEGATIVE (NEGATIVE); COLOR,URINE LIGHT-YELLOW (YELLOW); GLUCOSE, URINE (UA) NEGATIVE (NEGATIVE); KETONES,URINE 20 mg/dL (NEGATIVE); LEUKOCYTE ESTERASE ,URINE 75 Leu/uL (NEGATIVE); NITRATE,URINE NEGATIVE (NEGATIVE); OCCULT BLOOD,URINE NEGATIVE (NEGATIVE); PROTEIN,URINE 20 mg/dL (NEGATIVE)
[2023-02-11 08:45] LABS: BASOPHILS # (AUTO) 0.03 K/uL (0.00-0.20); BASOPHILS % (AUTO) 0.3 % (0.0-5.0); EOSINOPHILS # (AUTO) 0.01 K/uL (0.00-0.70); EOSINOPHILS % (AUTO) 0.1 % (0.0-8.0); HEMATOCRIT 38.8 % (36-48); IMMATURE GRANULOCYTE ABSOLUTE 0.06 K/uL (0-1); LYMPHOCYTES % (AUTO) 8.7 % (21.0-51.0); MEAN CORPUSCULAR HGB CONC 33.8 g/dL (32.0-36.0); MEAN CORPUSCULAR VOLUME 82.9 fL (79-99); MONOCYTES # (AUTO) 0.8 K/uL (0.1-1.0); MONOCYTES % (AUTO) 7.4 % (3.0-13.0); NEUTROPHILS # (AUTO) 9.5 K/uL (1.8-7.7); PLATELET COUNT (AUTO) 108 K/uL (130-400); RED BLOOD CELL COUNT(AUTO) 4.68 MIL/uL (4.00-5.50); RED CELL DISTRIBUTION WIDTH 12.9 % (11.0-15.5); WHITE BLOOD COUNT (AUTO) 11.4 K/uL (4.8-10.8)
[2023-02-11 09:00] VITALS: TEMP 102.2
[2023-02-11] MEDS ORDERED: CEFTRIAXONE 2GM VIAL IVPB ONE (09:00)
[2023-02-11] MEDS ORDERED: METOCLOPRAMIDE 10 MG/2 ML VIAL IVP ONE (09:00)
[2023-02-11] MEDS ORDERED: ACETAMINOPHEN 500 MG TABLET PO ONE (09:00)
[2023-02-11] MEDS ORDERED: FAMOTIDINE 20MG VIAL IV ONE (09:00)
[2023-02-11] MEDS ORDERED: KETOROLAC 30MG VIAL (30MG/ML) IVP ONE (09:00)
[2023-02-11] MEDS ORDERED: 0.9%NACL 1000ML 1,000 ML IV ONE ×2 (09:00)
[2023-02-11 09:16] LABS: BILIRUBIN,TOTAL 1.3 mg/dL (0.2-1.0); CREATININE 0.7 mg/dL (0.5-1.5); POTASSIUM 3.6 mmol/L (3.5-5.1); TOTAL PROTEIN, SERUM 7.5 g/dL (6.0-8.3)
[2023-02-11 09:17] LABS: ALBUMIN 3.2 g/dL (3.5-5.0)
[2023-02-11 09:24] LABS: ADD UA MICROSCOPIC YES
[2023-02-11 09:41] LABS: BACTERIA,URINE FEW /HPF (None Seen); MUCUS,URINE RARE LPF (None Seen); SQUAMOUS EPITHELIAL CELL,UR MOD /HPF (0-2)
[2023-02-11 10:01] VITALS: BP 113/63; PULSE 72; RESP 18; O2SAT 96
[2023-02-11] MEDS ORDERED: CEPH500B PO (10:59)
== END 2023-02-11 11:00 | disposition home or self-care (01) ==
LOC: EDH 07:46
DX: N39.0 Urinary tract infection, site not specified (principal); E11.65 Type 2 diabetes mellitus with hyperglycemia; I10 Essential (primary) hypertension; E78.00 Pure hypercholesterolemia, unspecified; Z90.49 Acquired absence of other specified parts of digestive tract; Z79.82 Long term (current) use of aspirin; Z79.84 Long term (current) use of oral hypoglycemic drugs; Z79.899 Other long term (current) drug therapy
CPT/HCPCS: 99284; 96365; 96375; 80053; 83690; 85025; 87040 ×2; 87077; 87088; 87186; 83605; 81001; 36415; J3490; J0696; J1885; J2765

== ENCOUNTER → 2023-02-27 | Outpatient (CLI) | payer OTHER ==
[~2023-02-27] MED LIST changes: +CEPH500B PO
[2023-02-27 12:00] LABS: BASOPHILS # (AUTO) 0.03 K/uL (0.00-0.20); BASOPHILS % (AUTO) 0.4 % (0.0-5.0); EOSINOPHILS # (AUTO) 0.09 K/uL (0.00-0.70); EOSINOPHILS % (AUTO) 1.3 % (0.0-8.0); HEMATOCRIT 43.5 % (36-48); IMMATURE GRANULOCYTE ABSOLUTE 0.03 K/uL (0-1); LYMPHOCYTES # (AUTO) 1.5 K/uL (1.0-4.8); LYMPHOCYTES % (AUTO) 21.7 % (21.0-51.0); MEAN CORPUSCULAR HEMOGLOBIN 28.4 pg (27.0-33.0); MEAN CORPUSCULAR HGB CONC 33.1 g/dL (32.0-36.0); MEAN CORPUSCULAR VOLUME 85.8 fL (79-99); MONOCYTES # (AUTO) 0.3 K/uL (0.1-1.0); MONOCYTES % (AUTO) 3.8 % (3.0-13.0); NEUTROPHILS # (AUTO) 5.1 K/uL (1.8-7.7); NEUTROPHILS % (AUTO) 72.4 % (40.0-77.0); PLATELET COUNT (AUTO) 124 K/uL (130-400); RED BLOOD CELL COUNT(AUTO) 5.07 MIL/uL (4.00-5.50); WHITE BLOOD COUNT (AUTO) 7.1 K/uL (4.8-10.8)
[2023-02-27 12:10] LABS: HEMOGLOBIN A1C 8.4 % (4.0-6.0)
[2023-02-27 12:17] LABS: ALBUMIN 4.1 g/dL (3.5-5.0); BILIRUBIN,TOTAL 0.5 mg/dL (0.2-1.0); CREATININE 0.6 mg/dL (0.5-1.5); POTASSIUM 4.3 mmol/L (3.5-5.1); TOTAL PROTEIN, SERUM 7.7 g/dL (6.0-8.3)
== END | disposition home or self-care (01) ==
LOC: LAB 10:31
PROVIDERS: ATTEND Internal Medicine
DX: Z00.00 Encounter for general adult medical examination without abnormal findings (principal); E78.49 Other hyperlipidemia; I10 Essential (primary) hypertension
CPT/HCPCS: 36415; 80053; 80061; 82570; 83036; 85025

== ENCOUNTER → 2023-04-13 | Outpatient (CLI) | payer OTHER | END | disposition home or self-care (01) | LOC: RAH 07:54 | PROVIDERS: ATTEND Internal Medicine | DX: M19.012 Primary osteoarthritis, left shoulder (principal); M54.2 Cervicalgia; M25.512 Pain in left shoulder; M47.812 Spondylosis without myelopathy or radiculopathy, cervical region | CPT/HCPCS: 72040; 73030 ==

== ENCOUNTER 2023-05-01 12:01 | Emergency (ER) | payer OTHER ==
[~2023-05-01] VITALS: Ht 162.6 cm; Wt 89.4 kg
[2023-05-01 12:19] LABS: BASOPHILS # (AUTO) 0.02 K/uL (0.00-0.20); BASOPHILS % (AUTO) 0.2 % (0.0-5.0); EOSINOPHILS # (AUTO) 0.08 K/uL (0.00-0.70); IMMATURE GRANULOCYTE ABSOLUTE 0.04 K/uL (0-1); LYMPHOCYTES # (AUTO) 1.7 K/uL (1.0-4.8); LYMPHOCYTES % (AUTO) 20.8 % (21.0-51.0); MEAN CORPUSCULAR HEMOGLOBIN 28.6 pg (27.0-33.0); MEAN CORPUSCULAR VOLUME 84.1 fL (79-99); MONOCYTES # (AUTO) 0.3 K/uL (0.1-1.0); MONOCYTES % (AUTO) 3.8 % (3.0-13.0); NEUTROPHILS # (AUTO) 6.1 K/uL (1.8-7.7); NEUTROPHILS % (AUTO) 73.7 % (40.0-77.0); PLATELET COUNT (AUTO) 103 K/uL (130-400); RED BLOOD CELL COUNT(AUTO) 5.11 MIL/uL (4.00-5.50); RED CELL DISTRIBUTION WIDTH 13.2 % (11.0-15.5); WHITE BLOOD COUNT (AUTO) 8.2 K/uL (4.8-10.8)
[2023-05-01 12:23] LABS: CREATININE 0.7 mg/dL (0.5-1.5); POTASSIUM 3.9 mmol/L (3.5-5.1)
[2023-05-01 12:27] LABS: ALBUMIN 4.1 g/dL (3.5-5.0); BILIRUBIN,TOTAL 0.5 mg/dL (0.2-1.0); TOTAL PROTEIN, SERUM 7.8 g/dL (6.0-8.3)
[2023-05-01] MEDS ORDERED: IOHEXOL 350 MG/ML 100ML INFUS..BTL IV ONE (16:52)
[2023-05-01 17:03] LABS: ADD UA MICROSCOPIC YES; APPEARANCE,URINE CLEAR (CLEAR); BILIRUBIN,URINE NEGATIVE (NEGATIVE); COLOR,URINE LIGHT-YELLOW (YELLOW); GLUCOSE, URINE (UA) >=1000 mg/dL (NEGATIVE); KETONES,URINE 5 mg/dL (NEGATIVE); LEUKOCYTE ESTERASE ,URINE 25 Leu/uL (NEGATIVE); NITRATE,URINE NEGATIVE (NEGATIVE); OCCULT BLOOD,URINE NEGATIVE (NEGATIVE); PH,URINE 5.5 (5.0-8.0); PROTEIN,URINE NEGATIVE (NEGATIVE); UROBILINOGEN,URINE 0.2 mg/dL (0.2-1.0)
[2023-05-01 17:05] LABS: BACTERIA,URINE MOD /HPF (None Seen); MUCUS,URINE RARE LPF (None Seen); SQUAMOUS EPITHELIAL CELL,UR FEW /HPF (0-2)
[2023-05-01 18:21] VITALS: BP 143/72; PULSE 63; RESP 18; O2SAT 99
== END 2023-05-01 18:34 | disposition home or self-care (01) ==
LOC: EDH 12:01
DX: R42 Dizziness and giddiness (principal); R68.84 Jaw pain; M25.512 Pain in left shoulder; I10 Essential (primary) hypertension; E11.9 Type 2 diabetes mellitus without complications; Z79.82 Long term (current) use of aspirin; Z79.84 Long term (current) use of oral hypoglycemic drugs; Z79.899 Other long term (current) drug therapy; Z98.890 Other specified postprocedural states
CPT/HCPCS: 99285; 70496; 84484; 80053; 85025; 82948; 81001; 36415; 70498; 93005; 70450; Q9967

== ENCOUNTER → 2023-05-19 | Outpatient (CLI) | payer OTHER | END | disposition home or self-care (01) | LOC: RAH 08:10 | PROVIDERS: ATTEND Nurse Practitioner | DX: M19.012 Primary osteoarthritis, left shoulder (principal); M75.02 Adhesive capsulitis of left shoulder | CPT/HCPCS: 73221 ==

== ENCOUNTER → 2023-07-31 | Outpatient (CLI) | payer OTHER ==
[2023-07-31 10:20] LABS: BASOPHILS # (AUTO) 0.04 K/uL (0.00-0.20); BASOPHILS % (AUTO) 0.5 % (0.0-5.0); EOSINOPHILS # (AUTO) 0.14 K/uL (0.00-0.70); EOSINOPHILS % (AUTO) 1.6 % (0.0-8.0); HEMATOCRIT 43.9 % (36-48); IMMATURE GRANULOCYTE ABSOLUTE 0.05 K/uL (0-1); LYMPHOCYTES # (AUTO) 1.7 K/uL (1.0-4.8); LYMPHOCYTES % (AUTO) 19.9 % (21.0-51.0); MEAN CORPUSCULAR HGB CONC 33.7 g/dL (32.0-36.0); MEAN CORPUSCULAR VOLUME 86.1 fL (79-99); MONOCYTES # (AUTO) 0.4 K/uL (0.1-1.0); MONOCYTES % (AUTO) 4.1 % (3.0-13.0); NEUTROPHILS # (AUTO) 6.4 K/uL (1.8-7.7); NEUTROPHILS % (AUTO) 73.3 % (40.0-77.0); PLATELET COUNT (AUTO) 120 K/uL (130-400); RED CELL DISTRIBUTION WIDTH 13.3 % (11.0-15.5); WHITE BLOOD COUNT (AUTO) 8.7 K/uL (4.8-10.8)
[2023-07-31 10:34] LABS: ALBUMIN 3.9 g/dL (3.5-5.0); BILIRUBIN,TOTAL 0.8 mg/dL (0.2-1.0); CREATININE 0.8 mg/dL (0.5-1.5); POTASSIUM 4.3 mmol/L (3.5-5.1); TOTAL PROTEIN, SERUM 7.6 g/dL (6.0-8.3)
[2023-07-31 10:38] LABS: HEMOGLOBIN A1C 7.8 % (4.0-6.0)
== END | disposition home or self-care (01) ==
LOC: LAB 09:26
PROVIDERS: ATTEND Clinical Nurse Specialist Family Health
DX: I10 Essential (primary) hypertension (principal); E78.49 Other hyperlipidemia; D69.8 Other specified hemorrhagic conditions; E11.9 Type 2 diabetes mellitus without complications
CPT/HCPCS: 36415; 80053; 80061; 82043; 82570; 83036; 85025

== ENCOUNTER → 2024-03-29 | Outpatient (CLI) | payer OTHER | END | disposition home or self-care (01) | LOC: RAH 14:05 | PROVIDERS: ATTEND Internal Medicine | DX: Z12.31 Encounter for screening mammogram for malignant neoplasm of breast (principal); R92.333 Mammographic heterogeneous density, bilateral breasts; R92.30 Dense breasts, unspecified | CPT/HCPCS: 77067 ==

== ENCOUNTER → 2024-04-03 | Outpatient (CLI) | payer OTHER ==
[2024-04-03 09:59] LABS: HEMOGLOBIN A1C 8.1 % (4.0-6.0)
== END | disposition home or self-care (01) ==
LOC: LAB 09:20
PROVIDERS: ATTEND Clinical Nurse Specialist Family Health
DX: E11.65 Type 2 diabetes mellitus with hyperglycemia (principal); E11.42 Type 2 diabetes mellitus with diabetic polyneuropathy
CPT/HCPCS: 83036

== ENCOUNTER 2024-07-12 20:26 | Emergency (ER) | payer OTHER ==
[~2024-07-12] VITALS: Ht 162.6 cm; Wt 88.5 kg
--- NOTE | 2024-07-12 20:30 | NUR ---
COVID AND FLU SWABS COLLECTED AND SENT
[2024-07-12 20:55] LABS: BASOPHILS # (AUTO) 0.02 K/uL (0.00-0.20); BASOPHILS % (AUTO) 0.4 % (0.0-5.0); EOSINOPHILS # (AUTO) 0.01 K/uL (0.00-0.70); EOSINOPHILS % (AUTO) 0.2 % (0.0-8.0); HEMATOCRIT 42.8 % (36-48); IMMATURE GRANULOCYTE ABSOLUTE 0.03 K/uL (0-1); LYMPHOCYTES # (AUTO) 0.5 K/uL (1.0-4.8); MEAN CORPUSCULAR HEMOGLOBIN 28.4 pg (27.0-33.0); MEAN CORPUSCULAR HGB CONC 32.9 g/dL (32.0-36.0); MEAN CORPUSCULAR VOLUME 86.3 fL (79-99); MONOCYTES # (AUTO) 0.4 K/uL (0.1-1.0); MONOCYTES % (AUTO) 7.6 % (3.0-13.0); NEUTROPHILS # (AUTO) 4.3 K/uL (1.8-7.7); NEUTROPHILS % (AUTO) 81.2 % (40.0-77.0); PLATELET COUNT (AUTO) 80 K/uL (130-400); RED BLOOD CELL COUNT(AUTO) 4.96 MIL/uL (4.00-5.50); RED CELL DISTRIBUTION WIDTH 13.2 % (11.0-15.5); WHITE BLOOD COUNT (AUTO) 5.3 K/uL (4.8-10.8)
[2024-07-12 21:03] LABS: CREATININE 0.8 mg/dL (0.5-1.0); POTASSIUM 3.7 mmol/L (3.5-5.1)
[2024-07-12] MEDS: dexaMETHasone SOD PHOSPHATE 4 MG/ML 1ML VIAL IVP ONE (21:10)
[2024-07-12] MEDS: acetaMINOPHEN/coDEINE 120/12MG 5ML PO STA (21:11)
[2024-07-12 21:14] LABS: APPEARANCE,URINE CLEAR (CLEAR); BILIRUBIN,URINE NEGATIVE (NEGATIVE); COLOR,URINE LIGHT-YELLOW (YELLOW); GLUCOSE, URINE (UA) >=1000 mg/dL (NEGATIVE); KETONES,URINE NEGATIVE (NEGATIVE); LEUKOCYTE ESTERASE ,URINE NEGATIVE Leu/uL (NEGATIVE); NITRATE,URINE NEGATIVE (NEGATIVE); PH,URINE 5.5 (5.0-8.0); PROTEIN,URINE NEGATIVE (NEGATIVE); UROBILINOGEN,URINE 0.2 mg/dL (0.2-1.0)
[2024-07-12 21:15] LABS: ADD UA MICROSCOPIC YES
[2024-07-12 21:16] LABS: INFLUENZA TYPE B Negative For Type B (NEGATIVE)
[2024-07-12 21:19] LABS: SARS-CoV-2, RNA, NAAT NEGATIVE SARS CoV-2 (NEGATIVE)
[2024-07-12 21:21] LABS: MUCUS,URINE RARE LPF (None Seen); SQUAMOUS EPITHELIAL CELL,UR RARE /HPF (0-2); WBC,URINE 0-1 /HPF (0-1)
[2024-07-12 21:21] LABS: INFLUENZA TYPE A Positive For Type A (NEGATIVE)
[2024-07-12] MEDS: 0.9%NACL 1000ML 1,000 ML IV ONE (21:37)
[2024-07-12] MEDS: OSELTAMIVIR PHOSPHATE 75 MG CAP PO ONE (21:55)
[2024-07-12 22:00] VITALS: RESP 18
[2024-07-12] MEDS: IpraTROPium/alBUTERol SULFATE 3 ML SOLUTION IH ONE (22:00)
[2024-07-12] MEDS ORDERED: AZIT500T4 PO (22:01)
[2024-07-12] MEDS ORDERED: GUAI100L37 PO (22:01)
[2024-07-12] MEDS ORDERED: OSEL75 PO (22:01)
[2024-07-12] MEDS ORDERED: LORA10TA7 PO (22:01)
[2024-07-12] MEDS ORDERED: FLUT16H NS (22:01)
--- NOTE | 2024-07-12 22:01 | ERN ---
General Chief Complaint: Sepsis Stated Complaint: FEVER,COUGH,CONGESTION,MULTIPLE CONGESTION Time Seen by MD: 20:29 Source: patient History of Present Illness Initial Comments Patient is a 58-year-old female coming in to be evaluated for fever cough and congestion. Per patient these symptoms have been ongoing for two days. She also states that she does have a history of bronchitis usually after URIs. Per patient she has been having nasal congestion cough runny nose and sore throat. Allergies: Coded Allergies: No Known Allergies (Unverified Allergy, Unknown, 09/02/15) Home Meds Active Scripts Cephalexin Monohydrate (Keflex) 500 Mg Cap, 500 MG PO QID for 7 Days, #28 CAP 0 Refills Prov:YOLIE HENDRICKS Sr., MD 02/11/23 Reported Medications [Vitamin D3 ] No Conflict Check, 1000 MG PO DAILY 07/19/21 Aspirin (Aspirin EC) 81 Mg Tablet.dr, 81 MG PO DAILY, TAB 12/09/19 Omeprazole (Omeprazole) 20 Mg Tab.rap.dr, 20 MG PO ACBKFST 12/09/19 Dapagliflozin Propanediol (Farxiga) 10 Mg Tablet, 10 MG PO DAILY 12/09/19 Metformin HCl (Metformin HCl) 1,000 Mg Tablet, 1000 MG PO BIDMEALS 12/09/19 Simvastatin (Simvastatin) 10 Mg Tablet, 10 MG PO DAILY 12/09/19 Dulaglutide (Trulicity) 1.5 Mg/0.5 Ml Pen.injctr, 1.5 MG SQ QMONDAY 12/09/19 Losartan Potassium (Losartan Potassium) 100 Mg Tablet, 100 MG PO DAILY, TAB 09/02/15 Past Medical History Past Medical History: Diabetes-Type II, Hypertension Medical History Other: 2019 Past Surgical History: Cholecystectomy, Unknown Surgical History Other: D AND C Social History Social History: Negative, Lives with family ROS Dictation CONSTITUTIONAL: No chills, fever, no weakness, no diaphoresis, no malaise. HEAD/FACE: No signs of trauma. EENT: No eye pain, no blurred vision, no tearing, no double vision, no ear pain, no ear discharge, no nose pain, no nasal congestion, no throat pain, no throat swelling, no mouth pain. RESPIRATORY: cough, no orthopnea, no SOB, no stridor, no wheezing. CARDIOVASCULAR: No chest pain, no edema, no palpitations, no syncope. GASTROINTESTINAL/ABDOMINAL: No abdominal pain, no constipation, no diarrhea, no nausea, no vomiting. GENITOURINARY: No abnormal discharge, no dysuria, no frequent urination, no hematuria. No complaints of pain in the genitals. MUSCULOSKELETAL: No back pain, no gout, no joint pain, no joint swelling, no muscle pain, no muscle stiffness, no neck pain. INTEGUMENTARY: No change in color, no change in hair/nails, no dryness, no lesion, no lumps, no rash. NEUROLOGICAL/PSYCH: No anxiety, not depressed, no emotional problem, no headache, no numbness, no pre-existing deficit, no history of seizures, no tremors, no weakness. HEMATOLOGIC/LYMPHATIC: Not anemic, no history of blood clots, no apparent bleeding, no bruising, glands not swollen. All Systems Negative, Except as Noted. Physical Exam Physical Exam Dictation VITAL SIGNS: Reviewed. GENERAL APPEARANCE: Alert, oriented x3, no acute distress, obese. HEAD AND FACE: Non-traumatic. EYES: PERRL, pink conjunctivas, eyelid no trauma, anterior chamber clear. EARS: Pinnas intact and no signs of trauma or erythema. Ear canals clear and no discharge. TMs no erythema. NOSE: No discharge, no bleeding. OROPHARYNX: Mouth normal, teeth no caries, tongue pink. Pharynx clear, no erythema. Tonsils no exudates, no abscesses noted. Mucous membrane moist. NECK: Supple, non-tender, no thyromegaly, no masses, no JVD, no bruits. BREAST: Deferred. CHEST: No tenderness, no crepitus, no paradoxical movement, no retractions. LUNGS: Clear, well-ventilated, symmetric, no rales, no wheezing, no rhonchi, no stridor, good breath sounds bilaterally. HEART: Regular rate, regular rhythm, no murmur, no gallops. VASCULAR: No peripheral edema. ABDOMEN: Soft, positive bowel sounds, nondistended, no guarding, nontender, no rebound, no masses no hepatomegaly, no splenomegaly, no Juarez's sign, no hernias. RECTAL: Deferred. GENITAL: Deferred. NEUROLOGICAL: Normal speech, gross motor function intact, gross sensory function intact. MUSCULOSKELETAL: Neck nontender, full range of motion, back nontender, full range of motion. EXTREMITIES: Nontender, full range of motion. SKIN: Color pink, dry, no turgor, no rash, no lacerations, no abrasions, no contusions. LYMPHATICS: Deferred. Results Laboratory and Microbiology Lab and Micro Result Laboratory Tests Test 07/12/24 20:33 07/12/24 20:44 07/12/24 20:54 07/12/24 21:01 Influenza Type A Antigen Positive For Type A Influenza Type B Antigen Negative For Type B SARS-CoV-2, RNA, NAAT NEGATIVE SARS CoV-2 White Blood Count 5.3 K/uL (4.8-10.8) Red Blood Count 4.96 MIL/uL (4.00-5.50) Hemoglobin 14.1 g/dL (12.0-16.0) Hematocrit 42.8 % (36-48) Mean Corpuscular Volume 86.3 fL (79-99) Mean Corpuscular Hemoglobin 28.4 pg (27.0-33.0) Mean Corpuscular Hemoglobin Concent 32.9 g/dL (32.0-36.0) Red Cell Distribution Width 13.2 % (11.0-15.5) Platelet Count 80 K/uL (130-400) L Mean Platelet Volume 13.2 fL (7.5-10.5) H Immature Granulocyte % (Auto) 0.6 % (0-1) Neutrophils (%) (Auto) 81.2 % (40.0-77.0) H Lymphocytes (%) (Auto) 10.0 % (21.0-51.0) L Monocytes (%) (Auto) 7.6 % (3.0-13.0) Eosinophils (%) (Auto) 0.2 % (0.0-8.0) Basophils (%) (Auto) 0.4 % (0.0-5.0) Neutrophils # (Auto) 4.3 K/uL (1.8-7.7) Lymphocytes # (Auto) 0.5 K/uL (1.0-4.8) L Monocytes # (Auto) 0.4 K/uL (0.1-1.0) Eosinophils # (Auto) 0.01 K/uL (0.00-0.70) Basophils # (Auto) 0.02 K/uL (0.00-0.20) Absolute Immature Granulocyte (auto 0.03 K/uL (0-1) Nucleated Red Blood Cells 0.0 % (0.0-0.19) White Cell Morphology Comment See comments Sodium Level 138 mmol/L (136-145) Potassium Level 3.7 mmol/L (3.5-5.1) Chloride Level 100 mmol/L (101-111) L Carbon Dioxide Level 31 mmol/L (21-32) Blood Urea Nitrogen 10 mg/dL (7-18) Creatinine 0.8 mg/dL (0.5-1.0) Glomerular Filtration Rate Calc 85 mL/min (>90) Random Glucose 207 mg/dL (70-105) H Lactic Acid Level 1.5 mmol/L (0.8-2.5) Total Calcium 8.9 mg/dL (8.5-10.1) Total Creatine Kinase 56 U/L (21-232) # Troponin I High Sensitivity 45 ng/L (4-50) Urine Color LIGHT-YELLOW (YELLOW) Urine Appearance CLEAR (CLEAR) Urine pH 5.5 (5.0-8.0) Urine Specific [place] 1.036 (1.001-1.031) Urine Protein NEGATIVE mg/dL (NEGATIVE) Urine Glucose (UA) >=1000 mg/dL (NEGATIVE) H Urine Ketones NEGATIVE mg/dL (NEGATIVE) Urine Occult Blood +- (TRACE) (NEGATIVE) H Urine Nitrate NEGATIVE (NEGATIVE) Urine Bilirubin NEGATIVE mg/dL (NEGATIVE) Urine Urobilinogen 0.2 mg/dL (0.2-1.0) Urine Leukocyte Esterase NEGATIVE Hieu/uL Urine RBC 11-25 /HPF (0-1) H Urine WBC 0-1 /HPF (0-1) Urine Squamous Epithelial Cells RARE /HPF (0-2) Urine Bacteria None /HPF (None Seen) Group A Streptococcus Rapid negative (NEGATIVE) Labs Reviewed?: Yes EKG/XRAY/US/CT/MRI EKG Comment Chest x-ray- NAD MDM MDM: Differential diagnosis: URI, bronchitis, COVID, flu Patient is a 58-year-old female coming in to be evaluated for URI symptoms. Per patient these symptoms began two days ago progressively got worse. Today laboratory workup disclose an influenza A. Patient was treated with IV fluids Tamiflu as well as antitussive. Patient will be discharged in stable condition with a diagnosis of influenza A. ED Course Orders Procedure Category Date Status Time Cbc With Differential LAB 07/12/24 Complete 20:31 Blood Cult DION 07/12/24 In Process 20:31 Urinalysis Profile LAB 07/12/24 Complete 20:31 Culture Urine DION 07/12/24 In Process 20:31 Creatine Kinase, Total LAB 07/12/24 Complete 20:31 Troponin I High LAB 07/12/24 Complete Sensitivity 20:31 Lactic Acid LAB 07/12/24 Complete 20:31 Basic Metabolic Panel LAB 07/12/24 Complete 20:31 Covid Rna Naat LAB 07/12/24 Complete 20:31 Influenza Type A & B, LAB 07/12/24 Complete Rapid 20:31 Chest 1vw RAD 07/12/24 Taken 20:31 Dexamethasone 4mg/Ml PHA 07/12/24 Complete 1ml Vial (Dexametha 21:00 Acetaminophen-Codeine PHA 07/12/24 Complete Elixer (Tylenol-Co 20:31 Ipratropium/Albuterol PHA 07/12/24 Complete Neb (Duoneb) 21:00 Rapid (Group A Strep) LAB 07/12/24 Complete 20:50 0.9%Nacl 1000ml (Ns PHA 07/12/24 Complete 1000ml) 21:30 Oseltamivir Phosphate PHA 07/12/24 In Process (Tamiflu) 22:00 Current Medications Medications (Trade) Dose Ordered Sig/Jovon Route PRN Reason Start Time Stop Time Status Last Admin Dose Admin Acetaminophen/ Codeine Phosphate (TYLenol-coDEINE (120/12MG 5ML) ELIXIR) 10 ml ONCE STAT PO 07/12/24 20:31 07/12/24 20:35 DC 07/12/24 21:11 Albuterol (DUOneb) 2 udvial ONCE ONCE IH 07/12/24 21:00 07/12/24 21:01 DC Dexamethasone Sodium Phosphate (dexaMETHasone 4MG/ML 1ML VIAL) 6 mg ONCE ONCE IVP 07/12/24 21:00 07/12/24 21:01 DC 07/12/24 21:10 Oseltamivir Phosphate (Tamiflu) 75 mg ONCE ONCE PO 07/12/24 22:00 07/12/24 22:01 Sodium Chloride 1,000 ml @ 0 mls/hr ONCE ONCE IV 07/12/24 21:30 07/12/24 21:31 DC 07/12/24 21:37 Vital Signs Date Time Temp Pulse Resp B/P (MAP) Pulse Ox O2 Delivery O2 Flow Rate FiO2 07/12/24 20:56 100.9 72 20 162/74 97 Room Air* 0 21 07/12/24 20:27 101.7 69 24 184/82 99 Room Air DX & DISP Disposition: Discharge Departure Impression: Primary Impression: Influenza A Condition: Stable Scripts Guaifenesin (Tussin) 100 Mg/5 Ml Liquid 5 ML PO QID for cough for 10 Days, #200 ML 0 Refills Prov: MITCH ARCINIEGA MD 07/12/24 Fluticasone Propionate (Flonase Nasal [employer] [place]) 50 Mcg/Actuation [employer] 2 SPRAY NS DAILY, #16 GM 0 Refills Prov: MITCH ARCINIEGA MD 07/12/24 Loratadine (Loratadine) 10 Mg Tablet 1 TAB PO DAILY for allergy symptoms for 30 Days, #30 TAB 0 Refills Prov: MITCH ARCINIEGA MD 07/12/24 Azithromycin (Azithromycin) 500 Mg Tablet 1 TAB PO DAILY for 5 Days, #5 TAB 0 Refills Prov: MITCH ARCINIEGA MD 07/12/24 Oseltamivir Phosphate (Tamiflu) 75 Mg Cap 1 CAP PO BID for 5 Days, #10 CAP 0 Refills Prov: MITCH ARCINIEGA MD 07/12/24 Additional Instructions: FOLLOW-UP WITH PRIMARY CARE PROVIDER IN 1 TO 2 DAYS. TAKE MEDICATIONS DIRECTED HERE IN THE EMERGENCY ROOM. OKAY TO CONTINUE HOME MEDICATIONS UNLESS OTHERWISE DISCUSSED DURING YOUR VISIT IN THE EMERGENCY ROOM TODAY. RETURN TO YOUR NEAREST EMERGENCY ROOM IF SYMPTOMS WORSEN OR IF THERE IS NO IMPROVEMENT. CALL 911 IF YOU NEED IMMEDIATE ASSISTANCE. TAKE TYLENOL [id number] NEEDED AND IF NO CONTRAINDICATIONS ARE PRESENT. INCREASE ORAL HYDRATION. A WOUND CULTURE OR URINE CULTURE WAS ORDERED HERE IN THE EMERGENCY ROOM DEPARTMENT PLEASE FOLLOW-UP WITH PRIMARY CARE PROVIDER AND ADVISE THEM TO GET REPEAT PORTS FROM OUR FACILITY. IF YOU HAD ANY ANSLEY WRAP/SPLINTS THAT WERE APPLIED HERE, PLEASE DO NOT REMOVE THEM UNTIL YOU SEE YOUR PRIMARY CARE OR SPECIALTY. Referrals: Referrals: PAT RAHMAN MD (PCP) Time of Disposition: 21:58 MITCH ARCINIEGA MD Jul 12, 2024 22:01
[2024-07-12 22:46] VITALS: BP 148/70; PULSE 72; RESP 18; TEMP 99.8; O2SAT 97
--- NOTE | 2024-07-13 08:17 | HMCIMG ---
PORTABLE CHEST RADIOGRAPH INDICATION: fever COMPARISON: 05/05/2020 CT chest FINDINGS: Heart size is normal. The pulmonary vascularity and ese appear normal. No abnormal pulmonary parenchymal opacity or consolidation identified. No significant pleural effusion noted. No pneumothorax detected. IMPRESSION: No radiographic evidence for any acute cardiopulmonary process.
== END 2024-07-12 22:47 | disposition home or self-care (01) ==
LOC: EDH 20:26
DX: J10.1 Influenza due to other identified influenza virus with other respiratory manifestations (principal); E11.9 Type 2 diabetes mellitus without complications; I10 Essential (primary) hypertension; Z79.82 Long term (current) use of aspirin; Z79.84 Long term (current) use of oral hypoglycemic drugs; Z79.899 Other long term (current) drug therapy; Z86.16 Personal history of COVID-19; Z90.49 Acquired absence of other specified parts of digestive tract; Z20.822 Contact with and (suspected) exposure to COVID-19
CPT/HCPCS: 99284; 96374; 71045; 87635; 82550; 84484; 80048; 85025; 87040 ×2; 87086 ×2; 87186; 87880; 87804 ×2; 83605; 81001; 36415; 94640; J1100; J7030

== ENCOUNTER → 2024-08-26 | Outpatient (CLI) | payer OTHER ==
[~2024-08-26] MED LIST changes: +AZIT500T4 PO; +FLUT16H NS; +GUAI100L37 PO; +LORA10TA7 PO; +OSEL75 PO
[2024-08-26 11:01] LABS: BASOPHILS # (AUTO) 0.03 K/uL (0.00-0.20); BASOPHILS % (AUTO) 0.4 % (0.0-5.0); EOSINOPHILS # (AUTO) 0.11 K/uL (0.00-0.70); EOSINOPHILS % (AUTO) 1.5 % (0.0-8.0); HEMATOCRIT 45.8 % (36-48); IMMATURE GRANULOCYTE ABSOLUTE 0.03 K/uL (0-1); LYMPHOCYTES # (AUTO) 1.7 K/uL (1.0-4.8); LYMPHOCYTES % (AUTO) 23.3 % (21.0-51.0); MEAN CORPUSCULAR HEMOGLOBIN 29.2 pg (27.0-33.0); MEAN CORPUSCULAR HGB CONC 33.4 g/dL (32.0-36.0); MEAN CORPUSCULAR VOLUME 87.4 fL (79-99); MONOCYTES # (AUTO) 0.3 K/uL (0.1-1.0); MONOCYTES % (AUTO) 4.5 % (3.0-13.0); NEUTROPHILS # (AUTO) 5.1 K/uL (1.8-7.7); NEUTROPHILS % (AUTO) 69.9 % (40.0-77.0); PLATELET COUNT (AUTO) 104 K/uL (130-400); RED BLOOD CELL COUNT(AUTO) 5.24 MIL/uL (4.00-5.50); RED CELL DISTRIBUTION WIDTH 12.8 % (11.0-15.5); WHITE BLOOD COUNT (AUTO) 7.3 K/uL (4.8-10.8)
[2024-08-26 11:03] LABS: HEMOGLOBIN A1C 8.1 % (4.0-6.0)
[2024-08-26 11:12] LABS: BILIRUBIN,TOTAL 0.6 mg/dL (0.2-1.0); CREATININE 0.8 mg/dL (0.5-1.0); POTASSIUM 4.1 mmol/L (3.5-5.1); TOTAL PROTEIN, SERUM 7.4 g/dL (6.0-8.3)
== END | disposition home or self-care (01) ==
LOC: LAB 10:05
PROVIDERS: ATTEND Clinical Nurse Specialist Family Health
DX: E11.42 Type 2 diabetes mellitus with diabetic polyneuropathy (principal); I10 Essential (primary) hypertension; E11.65 Type 2 diabetes mellitus with hyperglycemia; E78.2 Mixed hyperlipidemia; E11.69 Type 2 diabetes mellitus with other specified complication
CPT/HCPCS: 36415; 80053; 80061; 82043; 82570; 83036; 85025

== ENCOUNTER 2024-09-21 10:05 | Emergency (ER) | payer OTHER ==
[~2024-09-21] VITALS: Ht 162.6 cm; Wt 89.4 kg
[2024-09-21] MEDS: 0.9%NACL 1000ML 1,000 ML IV ONE (10:40)
[2024-09-21] MEDS: dexaMETHasone SOD PHOSPHATE 4 MG/ML 1ML VIAL IVP ONE (10:40)
[2024-09-21 10:41] LABS: BASOPHILS # (AUTO) 0.03 K/uL (0.00-0.20); BASOPHILS % (AUTO) 0.3 % (0.0-5.0); EOSINOPHILS # (AUTO) 0.07 K/uL (0.00-0.70); EOSINOPHILS % (AUTO) 0.7 % (0.0-8.0); HEMATOCRIT 44.2 % (36-48); IMMATURE GRANULOCYTE ABSOLUTE 0.03 K/uL (0-1); LYMPHOCYTES # (AUTO) 1.3 K/uL (1.0-4.8); LYMPHOCYTES % (AUTO) 13.2 % (21.0-51.0); MEAN CORPUSCULAR HEMOGLOBIN 28.8 pg (27.0-33.0); MEAN CORPUSCULAR HGB CONC 33.3 g/dL (32.0-36.0); MEAN CORPUSCULAR VOLUME 86.5 fL (79-99); MONOCYTES # (AUTO) 0.5 K/uL (0.1-1.0); MONOCYTES % (AUTO) 4.6 % (3.0-13.0); NEUTROPHILS # (AUTO) 8.2 K/uL (1.8-7.7); NEUTROPHILS % (AUTO) 80.9 % (40.0-77.0); PLATELET COUNT (AUTO) 102 K/uL (130-400); RED BLOOD CELL COUNT(AUTO) 5.11 MIL/uL (4.00-5.50); RED CELL DISTRIBUTION WIDTH 12.9 % (11.0-15.5); WHITE BLOOD COUNT (AUTO) 10.1 K/uL (4.8-10.8)
[2024-09-21 10:46] LABS: CREATININE 0.8 mg/dL (0.5-1.0); POTASSIUM 4.1 mmol/L (3.5-5.1)
--- NOTE | 2024-09-21 11:00 | HMCIMG ---
Exam Type: CHEST 1VW Clinical Information: COUGH Comparison: None Findings: The lungs are clear of infiltrates. The heart is normal in size. The bony and soft tissue structures of the chest are unremarkable. Impression: Clear lungs.
[2024-09-21 11:10] VITALS: PULSE 84; RESP 18
--- NOTE | 2024-09-21 11:24 | ERN ---
General Chief Complaint: Sore Throat Stated Complaint: SORE THROAT Time Seen by MD: 10:05 Source: patient History of Present Illness Initial Comments PATIENT IS A 58-YEAR-OLD FEMALE COMING IN TO BE EVALUATED FOR URI SYMPTOMS. PER PATIENT SHE HAS BEEN HAVING SORE THROAT COUGH AND CONGESTION FOR A COUPLE OF DAYS. SHE STATES THAT HE HAS BEEN GETTING WORSE. HE WAS HERE FOR FURTHER EVALUATION. Allergies: Coded Allergies: No Known Allergies (Unverified Allergy, Unknown, 09/02/15) Home Meds Active Scripts Guaifenesin (Tussin) 100 Mg/5 Ml Liquid, 5 ML PO QID for cough for 10 Days, #200 ML 0 Refills Prov:MITCH ARCINIEGA MD 07/12/24 Fluticasone Propionate (Flonase Nasal [employer]) 50 Mcg/Actuation [employer], 2 SPRAY NS DAILY, #16 GM 0 Refills Prov:MITCH ARCINIEGA MD 07/12/24 Loratadine (Loratadine) 10 Mg Tablet, 1 TAB PO DAILY for allergy symptoms for 30 Days, #30 TAB 0 Refills Prov:MITCH ARCINIEGA MD 07/12/24 Azithromycin (Azithromycin) 500 Mg Tablet, 1 TAB PO DAILY for 5 Days, #5 TAB 0 Refills Prov:MITCH ARCINIEGA MD 07/12/24 Oseltamivir Phosphate (Tamiflu) 75 Mg Cap, 1 CAP PO BID for 5 Days, #10 CAP 0 Refills Prov:MITCH ARCINIEGA MD 07/12/24 Cephalexin Monohydrate (Keflex) 500 Mg Cap, 500 MG PO QID for 7 Days, #28 CAP 0 Refills Prov:YOLIE HENDRICKS Sr., MD 02/11/23 Reported Medications [Vitamin D3 ] No Conflict Check, 1000 MG PO DAILY 07/19/21 Aspirin (Aspirin EC) 81 Mg Tablet., 81 MG PO DAILY, TAB 12/09/19 Omeprazole (Omeprazole) 20 Mg Tab.rap., 20 MG PO ACBKFST 12/09/19 Dapagliflozin Propanediol (Farxiga) 10 Mg Tablet, 10 MG PO DAILY 12/09/19 Metformin HCl (Metformin HCl) 1,000 Mg Tablet, 1000 MG PO BIDMEALS 12/09/19 Simvastatin (Simvastatin) 10 Mg Tablet, 10 MG PO DAILY 6/22/20 Dulaglutide (Trulicity) 1.5 Mg/0.5 Ml Pen.injctr, 1.5 MG SQ QMONDAY 12/09/19 Losartan Potassium (Losartan Potassium) 100 Mg Tablet, 100 MG PO DAILY, TAB 09/02/15 Past Medical History Past Medical History: Diabetes-Type II Medical History Other: [place], AND COVID Past Surgical History: Cholecystectomy, BTL Surgical History Other: D&C, Social History Social History: Negative, Lives with family ROS Dictation CONSTITUTIONAL: NO CHILLS, NO FEVER, NO WEAKNESS, NO DIAPHORESIS, NO MALAISE. HEAD/FACE: NO SIGNS OF TRAUMA. EENT: NO EYE PAIN, NO BLURRED VISION, NO TEARING, NO DOUBLE VISION, NO EAR PAIN, NO EAR DISCHARGE, NO NOSE PAIN, NO NASAL CONGESTION, NO THROAT PAIN, NO THROAT SWELLING, NO MOUTH PAIN. RESPIRATORY: NO COUGH, NO ORTHOPNEA, NO SOB, NO STRIDOR, NO WHEEZING. CARDIOVASCULAR: NO CHEST PAIN, NO EDEMA, NO PALPITATIONS, NO SYNCOPE. GASTROINTESTINAL/ABDOMINAL: NO ABDOMINAL PAIN, NO CONSTIPATION, NO DIARRHEA, NO NAUSEA, NO VOMITING. GENITOURINARY: NO ABNORMAL DISCHARGE, NO DYSURIA, NO FREQUENT URINATION, NO HEMATURIA. NO COMPLAINTS OF PAIN IN THE GENITALS. MUSCULOSKELETAL: NO BACK PAIN, NO GOUT, NO JOINT PAIN, NO JOINT SWELLING, NO MUSCLE PAIN, NO MUSCLE STIFFNESS, NO NECK PAIN. INTEGUMENTARY: NO CHANGE IN COLOR, NO CHANGE IN HAIR/NAILS, NO DRYNESS, NO LESION, NO LUMPS, NO RASH. NEUROLOGICAL/PSYCH: NO ANXIETY, NOT DEPRESSED, NO EMOTIONAL PROBLEM, NO HEADACH E, NO NUMBNESS, NO PRE-EXISTING DEFICIT, NO HISTORY OF SEIZURES, NO TREMORS, NO WEAKNESS. HEMATOLOGIC/LYMPHATIC: NOT ANEMIC, NO HISTORY OF BLOOD CLOTS, NO APPARENT BLEEDING, NO BRUISING, GLANDS NOT SWOLLEN. ALL SYSTEMS NEGATIVE, EXCEPT NOTED. Physical Exam Physical Exam Dictation VITAL SIGNS: REVIEWED. GENERAL APPEARANCE: ALERT, ORIENTED X3, NO ACUTE DISTRESS, OBESE. HEAD AND FACE: NON-TRAUMATIC. EYES: PERRL, PINK CONJUNCTIVAS, EYELID NO TRAUMA, ANTERIOR CHAMBER CLEAR. EARS: PINNAS INTACT AND NO SIGNS OF TRAUMA OR ERYTHEMA. EAR CANALS CLEAR AND NO DISCHARGE. TMS NO ERYTHEMA. NOSE: NO DISCHARGE, NO BLEEDING. OROPHARYNX: MOUTH NORMAL, TEETH NO CARIES, TONGUE PINK. PHARYNX ERYTHEMA TONSILS NO EXUDATES, NO ABSCESSES NOTED. MUCOUS MEMBRANE MOIST. NECK: SUPPLE, NON-TENDER, NO THYROMEGALY, NO MASSES, NO JVD, NO BRUITS. BREAST: DEFERRED. CHEST: NO TENDERNESS, NO CREPITUS, NO PARADOXICAL MOVEMENT, NO RETRACTIONS. LUNGS: CLEAR, WELL-VENTILATED, SYMMETRIC, NO RALES, NO WHEEZING, NO RHONCHI, NO STRIDOR, GOOD BREATH SOUNDS BILATERALLY. HEART: REGULAR RATE, REGULAR RHYTHM, NO MURMUR, NO GALLOPS. VASCULAR: NO PERIPHERAL EDEMA. ABDOMEN: SOFT, POSITIVE BOWEL SOUNDS, NONDISTENDED, NO GUARDING, NONTENDER, NO REBOUND, NO MASSES NO HEPATOMEGALY, NO SPLENOMEGALY, NO BINGHAM'S SIGN, NO HERNIAS. RECTAL: DEFERRED. GENITAL: DEFERRED. NEUROLOGICAL: NORMAL SPEECH, GROSS MOTOR FUNCTION INTACT, GROSS SENSORY FUNCTION INTACT. MUSCULOSKELETAL: NECK NONTENDER, FULL RANGE OF MOTION, BACK NONTENDER, FULL RANGE OF MOTION. EXTREMITIES: NONTENDER, FULL RANGE OF MOTION. SKIN: COLOR PINK, DRY, NO TURGOR, NO RASH, NO LACERATIONS, NO ABRASIONS, NO CONTUSIONS. LYMPHATICS: DEFERRED. Results Laboratory and Microbiology Lab and Micro Result Laboratory Tests Test 09/21/24 10:21 09/21/24 10:30 Influenza Type A Antigen Negative For Type A Influenza Type B Antigen Negative For Type B SARS-CoV-2, RNA, NAAT NEGATIVE SARS CoV-2 Group A Streptococcus Rapid negative (NEGATIVE) White Blood Count 10.1 K/uL (4.8-10.8) Red Blood Count 5.11 MIL/uL (4.00-5.50) Hemoglobin 14.7 g/dL (12.0-16.0) Hematocrit 44.2 % (36-48) Mean Corpuscular Volume 86.5 fL (79-99) Mean Corpuscular Hemoglobin 28.8 pg (27.0-33.0) Mean Corpuscular Hemoglobin Concent 33.3 g/dL (32.0-36.0) Red Cell Distribution Width 12.9 % (11.0-15.5) Platelet Count 102 K/uL (130-400) L Mean Platelet Volume 13.2 fL (7.5-10.5) H Immature Granulocyte % (Auto) 0.3 % (0-1) Neutrophils (%) (Auto) 80.9 % (40.0-77.0) H Lymphocytes (%) (Auto) 13.2 % (21.0-51.0) L Monocytes (%) (Auto) 4.6 % (3.0-13.0) Eosinophils (%) (Auto) 0.7 % (0.0-8.0) Basophils (%) (Auto) 0.3 % (0.0-5.0) Neutrophils # (Auto) 8.2 K/uL (1.8-7.7) H Lymphocytes # (Auto) 1.3 K/uL (1.0-4.8) Monocytes # (Auto) 0.5 K/uL (0.1-1.0) Eosinophils # (Auto) 0.07 K/uL (0.00-0.70) Basophils # (Auto) 0.03 K/uL (0.00-0.20) Absolute Immature Granulocyte (auto 0.03 K/uL (0-1) Nucleated Red Blood Cells 0.0 % (0.0-0.19) Sodium Level 138 mmol/L (136-145) Potassium Level 4.1 mmol/L (3.5-5.1) Chloride Level 102 mmol/L (101-111) Carbon Dioxide Level 27 mmol/L (21-32) Blood Urea Nitrogen 17 mg/dL (7-18) Creatinine 0.8 mg/dL (0.5-1.0) Glomerular Filtration Rate Calc 85 mL/min (>90) Random Glucose 250 mg/dL (70-105) H Total Calcium 9.2 mg/dL (8.5-10.1) Labs Reviewed?: Yes EKG/XRAY/US/CT/MRI X-RAY Comment [address] [address] IMAGING REPORT Signed PATIENT: FLORIAN WARE MR#: [id number] : 1965 SEX: F AGE: 58 LOCATION: [facility] ORDER 1010 STATUS: REG ER REPORT#: [id number] SERVICE 1008 REASON: COUGH ORDERING PHYSICIAN: MITCH ARCINIEGA MD PROCEDURE: CXR1VW - CHEST 1VW Exam Type: CHEST 1VW Clinical Information: COUGH Comparison: None Findings: The lungs are clear of infiltrates. The heart is normal in size. The bony and soft tissue structures of the chest are unremarkable. Impression: Clear lungs. DICTATED BY: ENRICO LLOYD MD DATE: 09/21/24 1057 ELECTRONICALLY SIGNED BY: ENRICO LLOYD MD DATE: 09/21/[address] Scan Comment [place] [address] [place] [id number] IMAGING REPORT Signed PATIENT: FLORIAN WARE MR#: [id number] : 1965 SEX: F AGE: 58 LOCATION: [facility] ORDER 01 STATUS: REG ER REPORT#: [id number] SERVICE 01 REASON: CP ORDERING PHYSICIAN: MITCH ARCINIEGA MD PROCEDURE: CHEST WO - CT CHEST W/O CONTRAST CT NONCONTRAST CHEST Comparison Study: none History: CP Technique: Helical CT of the chest without IV contrast at 5 mm collimation. Coronal and sagittal reformations also done. CT Dose Index (CTDI): 2.38 mGy Dose Length Product (DLP): 94.8 total mGy-cm Findings: The airway is intact. The trachea and major bronchi are unremarkable. The chest exam shows no pulmonary nodules or masses. No significant pulmonary parenchymal abnormalities are noted. No pulmonary infiltrates or mass lesions are seen. No pleural effusions are identified. There is no pneumothorax. There is no evidence of pneumomediastinum. The nonenhanced exam of the ese and mediastinum is unremarkable. No evidence of hilar enlargement is seen. The aorta shows no aneurysmal dilatation or significant atheromatous calcification. No significant brachiocephalic vascular abnormalities are seen. The heart is unremarkable. It is not enlarged. No significant coronary arterial calcifications are seen. There is no pericardial effusion. The rib cage appears unremarkable. The soft tissues of the chest wall are unremarkable. The dorsal spine shows no significant abnormalities. IMPRESSION: NORMAL CT OF THE CHEST WITHOUT CONTRAST. This study was performed using dose reduction techniques to include automated exposure control and/or adjustment of the mA and/or kV according to patient size. DICTATED BY: ENRICO LLOYD MD DATE: 09/21/24 1142 ELECTRONICALLY SIGNED BY: ENRICO LLOYD MD DATE: 09/21/24 1145 MDM MDM: DIFFERENTIAL DIAGNOSIS: COVID, STREP, FLU, URI, RATIONALE: TESTS CONSIDERED AND ORDERED SECONDARY TO SHARED DECISION MAKING INCLUDE: PATIENT IS A 58-YEAR-OLD FEMALE COMING IN TO BE EVALUATED FOR COUGH AND CONGESTION. ON PHYSICAL EXAM THERE IS A OROPHARYNGEAL ERYTHEMA WITH WHITE E XUDATE. PATIENT WILL BE DISCHARGED IN STABLE CONDITION AFTER BEING TREATED WITH BREATHING TREATMENTS AND STEROIDS. DIAGNOSIS URI WITH STREP PHARYNGITIS. ED Course Orders Procedure Category Date Status Time Cbc With Differential LAB 09/21/24 Complete 10:08 Chest 1vw RAD 09/21/24 Resulted 10:08 Urinalysis Profile LAB 09/21/24 In Process 10:08 Basic Metabolic Panel LAB 09/21/24 Complete 10:08 Covid Rna Naat LAB 09/21/24 Complete 10:08 Influenza Type A & B, LAB 09/21/24 Complete Rapid 10:08 Rapid (Group A Strep) LAB 09/21/24 Complete 10:08 Dexamethasone 4mg/Ml PHA 09/21/24 Complete 1ml Vial (Dexametha 10:30 0.9%Nacl 1000ml (Ns PHA 09/21/24 Complete 1000ml) 10:30 Ipratropium/Albuterol PHA 09/21/24 Complete Neb (Duoneb) 10:25 Ipratropium/Albuterol PHA 09/21/24 Complete Neb (Duoneb) 11:00 Ct Chest W/O Contrast CT 09/21/24 Resulted 11:02 Acetaminophen-Codeine PHA 09/21/24 Complete Elixer (Tylenol-Co 11:26 Acetaminophen-Codeine PHA 09/21/24 Complete Elixer (Tylenol-Co 11:56 Current Medications Medications (Trade) Dose Ordered Sig/Jovon Route PRN Reason Start Time Stop Time Status Last Admin Dose Admin Acetaminophen/ Codeine Phosphate (TYLenol-coDEINE (120/12MG 5ML) ELIXIR) 10 ml ONCE STAT PO 09/21/24 11:26 09/21/24 11:34 DC Acetaminophen/ Codeine Phosphate (TYLenol-coDEINE (120/12MG 5ML) ELIXIR) 10 ml ONCE STAT PO 09/21/24 11:56 09/21/24 12:01 DC Albuterol (DUOneb) 1 udvial STK-MED ONCE IH 09/21/24 10:25 09/21/24 10:26 DC Albuterol (DUOneb) 2 udvial ONCE ONCE IH 09/21/24 11:00 09/21/24 11:09 DC 09/21/24 11:51 Dexamethasone Sodium Phosphate (dexaMETHasone 4MG/ML 1ML VIAL) 6 mg ONCE ONCE IVP 09/21/24 10:30 09/21/24 10:31 DC 09/21/24 10:40 Sodium Chloride 1,000 ml @ 0 mls/hr ONCE ONCE IV 09/21/24 10:30 09/21/24 10:31 DC 09/21/24 10:40 Vital Signs Date Time Temp Pulse Resp B/P (MAP) Pulse Ox O2 Delivery O2 Flow Rate FiO2 09/21/24 11:18 98.1 76 14 135/71 97 Room Air* 0 21 09/21/24 11:10 84 18 09/21/24 10:14 97.7 60 16 152/66 Room Air 0 DX & DISP Disposition: Discharge Departure Impression: Primary Impression: Acute viral syndrome Additional Impression: Strep pharyngitis Condition: Stable Additional Instructions: FOLLOW-UP WITH PRIMARY CARE PROVIDER IN 1 TO 2 DAYS. TAKE MEDICATIONS DIRECTED HERE IN THE EMERGENCY ROOM. OKAY TO CONTINUE HOME MEDICATIONS UNLESS OTHERWISE DISCUSSED DURING YOUR VISIT IN THE EMERGENCY ROOM TODAY. RETURN TO YOUR NEAREST EMERGENCY ROOM IF SYMPTOMS WORSEN OR IF THERE IS NO IMPROVEMENT. CALL 911 IF YOU NEED IMMEDIATE ASSISTANCE. TAKE TYLENOL [id number] NEEDED AND IF NO CONTRAINDICATIONS ARE PRESENT. INCREASE ORAL HYDRATION. A WOUND CULTURE OR URINE CULTURE WAS ORDERED HERE IN THE EMERGENCY ROOM DEPARTMENT PLEASE FOLLOW-UP WITH PRIMARY CARE PROVIDER AND ADVISE THEM TO GET REPEAT PORTS FROM OUR FACILITY. IF YOU HAD ANY ANSLEY WRAP/SPLINTS THAT WERE APPLIED HERE, PLEASE DO NOT REMOVE THEM UNTIL YOU SEE YOUR PRIMARY CARE OR SPECIALTY. PATIENT WAS CURRENTLY TAKING AZITHROMYCIN PROVIDED BY PCP. REFERRALS: Referrals: PAT RAHMAN MD (PCP) Time of Disposition: 13:24 MITCH ARCINIEGA MD Sep 21, 2024 11:24
--- NOTE | 2024-09-21 11:45 | HMCIMG ---
CT NONCONTRAST CHEST Comparison Study: none History: CP Technique: Helical CT of the chest without IV contrast at 5 mm collimation. Coronal and sagittal reformations also done. CT Dose Index (CTDI): 2.38 mGy Dose Length Product (DLP): 94.8 total mGy-cm Findings: The airway is intact. The trachea and major bronchi are unremarkable. The chest exam shows no pulmonary nodules or masses. No significant pulmonary parenchymal abnormalities are noted. No pulmonary infiltrates or mass lesions are seen. No pleural effusions are identified. There is no pneumothorax. There is no evidence of pneumomediastinum. The nonenhanced exam of the ese and mediastinum is unremarkable. No evidence of hilar enlargement is seen. The aorta shows no aneurysmal dilatation or significant atheromatous calcification. No significant brachiocephalic vascular abnormalities are seen. The heart is unremarkable. It is not enlarged. No significant coronary arterial calcifications are seen. There is no pericardial effusion. The rib cage appears unremarkable. The soft tissues of the chest wall are unremarkable. The dorsal spine shows no significant abnormalities. IMPRESSION: NORMAL CT OF THE CHEST WITHOUT CONTRAST. This study was performed using dose reduction techniques to include automated exposure control and/or adjustment of the mA and/or kV according to patient size.
[2024-09-21] MEDS: IpraTROPium/alBUTERol SULFATE 3 ML SOLUTION IH ONE ×2 (11:49→11:51)
[2024-09-21 12:04] LABS: RAPID GROUP A STREP negative (NEGATIVE)
[2024-09-21 12:08] LABS: SARS-CoV-2, RNA, NAAT NEGATIVE SARS CoV-2 (NEGATIVE)
[2024-09-21 12:13] LABS: INFLUENZA TYPE A Negative For Type A (NEGATIVE); INFLUENZA TYPE B Negative For Type B (NEGATIVE)
[2024-09-21] MEDS: acetaMINOPHEN/coDEINE 120/12MG 5ML PO STA ×2 (13:05)
--- NOTE | 2024-09-21 13:06 | NUR ---
reassesment to lungs identified possible diminished lll
[2024-09-21 13:20] LABS: APPEARANCE,URINE CLEAR (CLEAR); BILIRUBIN,URINE NEGATIVE (NEGATIVE); COLOR,URINE LIGHT-YELLOW (YELLOW); GLUCOSE, URINE (UA) >=1000 mg/dL (NEGATIVE); KETONES,URINE NEGATIVE (NEGATIVE); LEUKOCYTE ESTERASE ,URINE NEGATIVE Leu/uL (NEGATIVE); NITRATE,URINE NEGATIVE (NEGATIVE); OCCULT BLOOD,URINE NEGATIVE (NEGATIVE); PH,URINE 5.5 (5.0-8.0); PROTEIN,URINE NEGATIVE (NEGATIVE); UROBILINOGEN,URINE 0.2 mg/dL (0.2-1.0)
[2024-09-21 13:28] VITALS: BP 148/76; PULSE 74; RESP 14; TEMP 98.8; O2SAT 98
[2024-09-21 13:47] LABS: ADD UA MICROSCOPIC YES
[2024-09-21 13:54] LABS: MUCUS,URINE RARE LPF (None Seen); SQUAMOUS EPITHELIAL CELL,UR RARE /HPF (0-2); WBC,URINE 0-1 /HPF (0-1)
== END 2024-09-21 13:34 | disposition home or self-care (01) ==
LOC: EDH 10:05
DX: J02.0 Streptococcal pharyngitis (principal); B34.9 Viral infection, unspecified; E11.9 Type 2 diabetes mellitus without complications; Z20.822 Contact with and (suspected) exposure to COVID-19; Z79.82 Long term (current) use of aspirin; Z79.84 Long term (current) use of oral hypoglycemic drugs; Z79.899 Other long term (current) drug therapy; Z90.49 Acquired absence of other specified parts of digestive tract; Z98.51 Tubal ligation status
CPT/HCPCS: 99285; 96374; 71250; 96361; 71045; 87635; 80048; 85025; 87880; 87804 ×2; 81001; 36415; 94640; J1100; J7030

== ENCOUNTER → 2025-03-24 | Outpatient (CLI) | payer OTHER ==
[2025-03-24 11:00] LABS: IMMATURE GRANULOCYTE ABSOLUTE 0.03 K/uL (0-1); NUCLEATED RED BLOOD CELLS 0.0 % (0.0-0.19); PLATELET COUNT (AUTO) 102 K/uL (130-400); RED BLOOD CELL COUNT(AUTO) 5.16 MIL/uL (4.00-5.50); RED CELL DISTRIBUTION WIDTH 13.2 % (11.0-15.5); WHITE BLOOD COUNT (AUTO) 6.2 K/uL (4.8-10.8)
[2025-03-24 11:18] LABS: ASPARTATE AMINOTRANSFERASE 14.0 U/L (10-37); CREATININE 0.8 mg/dL (0.5-1.0); GLOMERULAR FILTR. RATE CALC 84.0 mL/min (>90); GLUCOSE,RANDOM 191.0 mg/dL (70-105); LDL DIRECT 81.0 mg/dL (0-99); SODIUM SERUM 143.0 mmol/L (136-145); TOTAL PROTEIN, SERUM 7.3 g/dL (6.0-8.3); UREA NITROGEN, BLOOD 21.0 mg/dL (7-18)
== END | disposition home or self-care (01) ==
LOC: LAB 10:14
PROVIDERS: ATTEND Clinical Nurse Specialist Family Health
DX: E11.65 Type 2 diabetes mellitus with hyperglycemia (principal); E11.42 Type 2 diabetes mellitus with diabetic polyneuropathy; I10 Essential (primary) hypertension; E78.2 Mixed hyperlipidemia; E11.51 Type 2 diabetes mellitus with diabetic peripheral angiopathy without gangrene; I77.9 Disorder of arteries and arterioles, unspecified
CPT/HCPCS: 36415; 80053; 80061; 82043; 82570; 83036; 85025